=== PATIENT | male | born 1950 | race Caucasian/White ===

== ENCOUNTER → 2016-06-13 | Outpatient (CLI) | payer OTHER ==
[2013-11-11 14:32] VITALS: BP 178/105
[~2016-06-13] MED LIST: IOHEXOL 240 MG/ML 50ML VIAL. PO ONE; IOHEXOL 300 MG/ML 100ML VIAL. IV ONE; LISI-334 PO; OXYC-250 PO
--- NOTE | 2016-06-13 13:56 | KCIC ---
Examination: CT of the abdomen pelvis with oral and IV contrast. HISTORY History of left-sided abdominal pain. COMPARISON 11/20/2013. TECHNIQUE Axial CT images at the pelvis were performed without with oral and IV contrast. Coronal sagittal reformats were performed. Exposure: One or more of the following dose reduction technique were utilized for this examination: 1. Automated exposure control. 2.Adjustment of MA and /or KV according to patient size. 3. Use of iterative reconstruction technique. Findings: Mild bibasilar lung atelectasis. No evidence of free air identified in the abdomen The visualized liver demonstrates mild diffuse decrease attenuation. The visualized spleen, adrenals grossly appears unremarkable. The gallbladder is mildly distended. The stomach is mildly distended. The visualized pancreas grossly appears unremarkable. The bilateral kidneys enhance symmetrically. There is a punctate 3 millimeter intrarenal collecting system calculus identified in the left kidney. There is a 9.5 millimeter calculus identified at the right ureterovesical junction with minimal distal right hydroureter. The stomach is mildly distended. The small bowel is nondilated. Feces and gas noted in the colon. The urinary bladder is mildly distended. Moderate prostatomegaly. There is moderate focal fat stranding identified in the subcutaneous region of the left anterior abdominal wall just anterior to the left rectus sheath measuring 10.4 x 4.6 centimeters. Mild aortic atherosclerosis. Moderate degenerative changes lumbar spine. IMPRESSION - Moderate sized focal fat stranding identified in the subcutaneous region of the left mid abdomen abutting the left rectus sheath, most likely cellulitis. Other possibilities include scarring changes or desmoid or fibrosis. - 9.5 millimeter calculus identified in the distal right ureter at the ureterovesical junction causing minimal distal right hydroureter. - Punctate intrarenal collecting system calculi identified in the left kidney - Hepatic steatosis. Electronically signed by: Ramon Jean (Jun 13, 2016 13:55:26)
== END | disposition home or self-care (01) ==
LOC: KCIC CT 11:47
PROVIDERS: ATTEND Family Medicine
DX: R10.2 Pelvic and perineal pain (principal); K76.0 Fatty (change of) liver, not elsewhere classified
CPT/HCPCS: 74177; 82565; Q9966; Q9967

== ENCOUNTER → 2018-09-23 | Outpatient (CLI) | payer OTHER ==
[2013-11-11 14:32] VITALS: BP 178/105
[~2018-09-23] MED LIST changes: -IOHEXOL 240 MG/ML 50ML VIAL. PO ONE; -IOHEXOL 300 MG/ML 100ML VIAL. IV ONE; -OXYC-250 PO; +OXYC1TAB22 PO
--- NOTE | 2018-09-23 09:17 | RAD ---
Three-view right shoulder study Clinical indications: Right shoulder pain. Previous fracture 2 years ago. COMPARISON: June 07, 2016. FINDINGS: Deformity of the proximal right humerus is seen due to an old healed fracture. No acute-appearing fracture is evident. There is degenerative spurring of the glenohumeral joint with joint space narrowing consistent with osteoarthritis. No AC joint separation is seen. No lytic process is evident. Mild primary degenerative osteoarthritis and spurring of the AC joint is seen. IMPRESSION: Degenerative osteoarthritis of the glenohumeral joint and AC joint is seen. There has been progression of osteoarthritis of the glenohumeral joint since June 07, 2016. Old healed proximal right humeral fracture. Electronically signed by: David Brooke MD (09/23/2018 9:14 AM) [facility]
== END | disposition home or self-care (01) ==
LOC: RAD 05:57
PROVIDERS: ATTEND Family Medicine
DX: M19.011 Primary osteoarthritis, right shoulder (principal); M77.8 Other enthesopathies, not elsewhere classified
CPT/HCPCS: 73030

== ENCOUNTER → 2018-11-21 | Outpatient (CLI) | payer OTHER ==
[2013-11-11 14:32] VITALS: BP 178/105
[~2018-11-21] MED LIST changes: +ALPR1TAB6 PO; +BUPIVACAINE MPF 0.5% 30 ML VIAL. ONE; +DICL112S2 TP; +DOCU-150 PO; +FLUO10CA7 PO; +methylPREDNISolone ACETATE 40 MG/ML VIAL. ONE
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
== END ==
LOC: PNCL 09:03
PROVIDERS: ATTEND Anesthesiology
DX: R10.32 Left lower quadrant pain (principal); I10 Essential (primary) hypertension; Z87.442 Personal history of urinary calculi; Z98.890 Other specified postprocedural states
CPT/HCPCS: 64450; J1030; J3490

== ENCOUNTER → 2018-12-12 | Outpatient (CLI) | payer OTHER ==
[2013-11-11 14:32] VITALS: BP 178/105
[~2018-12-12] MED LIST changes: -BUPIVACAINE MPF 0.5% 30 ML VIAL. ONE; -methylPREDNISolone ACETATE 40 MG/ML VIAL. ONE
--- NOTE | 2018-12-12 22:21 | PAIN ---
DATE OF SERVICE: 12/12/2018 DIAGNOSIS: Abdominal wall pain, left lower quadrant. HISTORY OF PRESENT ILLNESS: The patient is a 68-year-old male who returns for followup status post abdominal wall, transabdominal plexus field block on 11/21/2018. The patient reports he has 0 pain. After about 2-3 days, the pain was completely gone and has not returned, in the left lower quadrant. He has been increasing his activity, he has been sleeping well at night, he has been doing more or less whatever he feels like doing without any restriction from the pain. The patient reports his pain is a 2 on a scale of 10 at all times, average, worst and least at 2 but reports he is doing quite well. The patient reports no new motor or sensory deficits. Sleeping well at night once again, increased his distance walking, especially, with greater ease and comfort and working with greater ease and comfort. PHYSICAL EXAMINATION: VITAL SIGNS: The patient's blood pressure 157/95, pulse 61, respirations 16, temperature 98.1 degrees Fahrenheit, weight is 206 pounds. GENERAL: The patient is awake, alert, oriented, appropriate, very pleasant demeanor. The patient is accompanied by his . HEENT: Shows normocephalic, atraumatic. Extraocular movements are intact and symmetrical. Oral cavity: Mucous membranes moist and pink. Dentition is intact. NECK: Shows anterior throat supple without palpable lymphadenopathy noted. Swallow reflex symmetrical. CHEST: Shows normal on inspection. Breath sounds are clear to auscultation bilaterally. HEART: Shows S1, S2 clear. No murmurs auscultated. ABDOMEN: Soft, nontender, nondistended. No palpable organomegaly is noted. No rebound or guarding demonstrated. BACK: Shows spine grossly in the midline. Normal appearing thoracic kyphosis and lumbar lordotic curvature. ABDOMEN: Shows nontender, nondistended. No palpable organomegaly is noted. Left lower quadrant shows some increased swelling in appearance, but without tenderness on palpation significantly through the entire left lower quadrant, even with deeper palpation. No masses are noted. No masses are palpated. No organomegaly is demonstrated. No tenderness throughout the area of the previous pain and the previous injections. PLAN: Options were discussed with the patient and the patient's spouse. We will hold on any further injections today as he is doing quite well. The patient was encouraged to increase activity as tolerated and we will follow up at this time on as needed basis. ALEX MUNOZ MD DR: DORIS/anju JOB#: [id number] / [id number]
== END | disposition home or self-care (01) ==
LOC: PNCL 09:32
PROVIDERS: ATTEND Anesthesiology
DX: R10.12 Left upper quadrant pain (principal); M40.294 Other kyphosis, thoracic region; M40.46 Postural lordosis, lumbar region
CPT/HCPCS: G0463

== ENCOUNTER 2019-05-01 12:30 | Emergency (ER) | payer OTHER ==
[~2019-05-01] VITALS: Ht 182.9 cm; Wt 43.1 kg
[~2019-05-01 12:30] MED LIST changes: +FLUO10CA14 PO; -FLUO10CA7 PO
[2019-05-01 12:57] LABS: BILIRUBIN,URINE NEGATIVE (NEG); CLARITY,URINE CLEAR; COLOR,URINE YELLOW; NITRITE,URINE NEGATIVE (NEG); PH,URINE 6.5; PROTEIN,URINE NEGATIVE (NEG-TRACE); UROBILINOGEN,URINE 0.2 mg/dL (0.2 mg/dL)
[2019-05-01 12:58] LABS: BASO % 1 % (0-3); EOS % 0 % (0-3); HEMATOCRIT 49.6 % (39.0-53.0); HEMOGLOBIN 17.1 g/dL (13.0-17.5); LYMPH # 0.9 x10^3/uL (1.0-4.8); LYMPH % 14 % (24-48); MEAN CORPUSCULAR HEMOGLOBIN 32 pg (25-35); MEAN CORPUSCULAR HGB CONC 34 g/dL (31-37); MEAN CORPUSCULAR VOLUME 93 fL (79-100); MONO # 0.4 x10^3/uL (0.0-1.1); MONO % 7 % (0-9); NEUT % 78 % (31-73); PLATELET COUNT 277 x10^3/uL (140-400); RED BLOOD COUNT 5.32 x10^6/uL (4.30-5.70); RED CELL DISTRIBUTION WIDTH 12.9 % (11.5-14.5); WHITE BLOOD COUNT 6.3 x10^3/uL (4.0-11.0)
[2019-05-01 13:04] LABS: BACTERIA,URINE 0 /HPF (0-FEW); RBC,URINE 0 /HPF (0-2); SQUAMOUS EPITHELIAL CELL,UR OCC /LPF; WBC,URINE 0 /HPF (0-4)
[2019-05-01 13:06] LABS: CALCIUM 9.5 mg/dL (8.5-10.1); CREATININE 1.3 mg/dL (0.7-1.3); GFR 54.9; POTASSIUM 4.2 mmol/L (3.5-5.1)
[2019-05-01 13:11] LABS: ALBUMIN/GLOBULIN RATIO 1.2 (1.0-1.7); TOTAL BILIRUBIN 0.8 mg/dL (0.2-1.0); TOTAL PROTEIN 7.4 g/dL (6.4-8.2)
[2019-05-01] MEDS: ONDANSETRON PF 4 MG/2 ML VIAL. IVP ONE (13:16)
[2019-05-01] MEDS: MORPHINE SULFATE 4 MG/ML VIAL. IV ONE (13:17)
[2019-05-01] MEDS: IOHEXOL 300 MG/ML 100ML VIAL. IV ONE (13:30)
[2019-05-01] MEDS: CONTRAST GIVEN. MC PRN (13:31)
--- NOTE | 2019-05-01 14:06 | RAD ---
Examination: CT ABD PELV W/ IV CONTRST ONLY History: Pelvic pain Comparison/Correlation: 06/13/2016 CT abdomen and pelvis with contrast Findings: Axial images of the abdomen and pelvis were obtained following IV contrast. Sagittal and coronal reformatted images were provided. Coronary arterial calcifications are notable. Minimal right posterior basilar costophrenic sulcus atelectasis is present. Linear scarring or atelectasis is also present. Liver, spleen, pancreas, adrenal glands, and appendix are unremarkable. Minimal calculus involvement of the gallbladder near the gallbladder neck is evident. No biliary dilatation. Punctate right renal lower pole calyceal calculus is present. Several left renal calyceal calculi are present measuring up to 0.4 cm in diameter. Left renal lower pole cyst is present. Very small to characterize lesions involving the kidneys which probably represent cysts or other benign process began seen. Diverticulosis is present without findings of acute inflammation. No extraluminal gas. No ascites or pelvic free fluid. At the distal right ureter, there is a 0.4 cm diameter calculus. Within the urinary bladder at this site, there is a 1.1 cm diameter calculus. Prostate gland is enlarged measuring 4.3 cm transverse. Left hip joint degenerative remodeling is present. Subchondral degenerative cystic involvement is present. Osteochondral lesion may also be present involving the left femoral head. Slight irregularity of the left femoral head contour noted. Impression: Cholelithiasis without findings of acute cholecystitis. Bilateral nonobstructive renal calculi greater number on the left. Right ureteral calculus again seen. Calculus within the urinary bladder is again seen. No acute inflammatory process or obstruction. Diverticulosis. Prostatomegaly. Significant left hip joint degenerative narrowing and remodeling in the interval. Osteochondral lesion of the left femoral head is suggested measuring 1.5 cm diameter in the interval. PQRS Compliance Statement: One or more of the following individualized dose reduction techniques were utilized for this examination: 1. Automated exposure control 2. Adjustment of the mA and/or kV according to patient size 3. Use of iterative reconstruction technique Electronically signed by: Joel Carpenter MD (05/01/2019 2:03 PM) [facility]
[2019-05-01] MEDS ORDERED: TRAM50TA PO (15:22)
[2019-05-01] MEDS ORDERED: PROM25TA10 PO (15:22)
[2019-05-01] MEDS ORDERED: HYDR25CA75 PO (15:22)
[2019-05-01 15:52] VITALS: BP 157/97
[2019-05-01] MEDS: cloNIDine TTS-1 1 PATCH PATCH.TDWK TD ONE (15:53)
--- NOTE | 2019-05-01 16:39 | PHYS DOC ---
Past Medical History Past Medical History: Anxiety, Depression, Hypertension, Other Additional Past Medical Histor: vertigo, angioedema, Hematoma Past Surgical History: No Surgical History Additional Past Surgical Histo: stent for kidney stones Alcohol Use: None Drug Use: Other Social History Narrative: Unknown oblong, white tablet, imprint 353 Adult General Chief Complaint Chief Complaint: ABDOMINAL PAIN [facility] HPI Patient is a 69 year old male with history of chronic hip, back and knee pain who presents with abdominal pain 2 days. Patient's states pain began after running out of her opiates. Patient is sitting/dependent on nonprescribed opiate medications the past year. States he is ran out of opiate medication at times and develops abdominal pain and nausea. Denies chest pain chest tightness, vomiting and diarrhea. No fever. No other acute symptoms or complaints.[] Review of Systems Review of Systems ROS as per HPI All other systems were reviewed and found to be within normal limits, except as documented in this note. Current Medications Current Medications Current Medications Medications (Trade) Dose Ordered Sig/Chris Start Time Stop Time Status Last Admin Dose Admin Clonidine HCl (Catapres Tts-1) 1 patch 1X ONCE 05/01/19 15:30 05/01/19 15:31 DC 05/01/19 15:53 1 PATCH Info (CONTRAST GIVEN -- Rx MONITORING) 1 each PRN DAILY PRN 05/01/19 13:30 05/01/19 16:09 DC 05/01/19 13:31 1 EACH Iohexol (Omnipaque 300 Mg/ml) 60 ml 1X ONCE 05/01/19 13:30 05/01/19 13:31 DC 05/01/19 13:30 60 ML Morphine Sulfate (Morphine Sulfate) 4 mg 1X ONCE 05/01/19 13:00 05/01/19 13:01 DC 05/01/19 13:17 4 MG Ondansetron HCl (Zofran) 4 mg 1X ONCE 05/01/19 13:00 05/01/19 13:01 DC 05/01/19 13:16 4 MG Allergies Allergies Allergies Coded Allergies Type Severity Reaction Last Updated Verified No Known Drug Allergies 11/11/13 No Physical Exam Physical Exam Constitutional: Well developed, I, clammy, moderate discomfort secondary to pain. [] HENT: Normocephalic, atraumatic, bilateral external ears normal, oropharynx moist, nose normal. [] Eyes: PERRLA, EOMI, conjunctiva normal, no discharge. [] Neck: Normal range of motion. [] Cardiovascular: Tachycardic[] Lungs & Thorax: Bilateral breath sounds clear to auscultation [] Abdomen: Bowel sounds normal, soft, fused lower abdominal pain, minimal tenderness, no palpable hernias.. [] Skin: Warm, dry. [] Back: No tenderness. [] Extremities: No tenderness, no cyanosis, no clubbing, ROM intact, no edema. [] Neurologic: Alert and oriented X 3, normal motor function, normal sensory function, no focal deficits noted. [] Psychologic: Affect normal, judgement normal, mood normal. [] Current Patient Data Vital Signs Vital Signs Date Time Temp Pulse Resp B/P (MAP) Pulse Ox O2 Delivery O2 Flow Rate FiO2 05/01/19 15:52 86 157/97 (117) Room Air 05/01/19 14:21 94 05/01/19 13:17 18 05/01/19 12:38 98.0 98.0 Lab Values Laboratory Tests Test 05/01/19 12:40 White Blood Count 6.3 x10^3/uL (4.0-11.0) Red Blood Count 5.32 x10^6/uL (4.30-5.70) Hemoglobin 17.1 g/dL (13.0-17.5) Hematocrit 49.6 % (39.0-53.0) Mean Corpuscular Volume 93 fL (79-100) Mean Corpuscular Hemoglobin 32 pg (25-35) Mean Corpuscular Hemoglobin Concent 34 g/dL (31-37) Red Cell Distribution Width 12.9 % (11.5-14.5) Platelet Count 277 x10^3/uL (140-400) Neutrophils (%) (Auto) 78 % (31-73) H Lymphocytes (%) (Auto) 14 % (24-48) L Monocytes (%) (Auto) 7 % (0-9) Eosinophils (%) (Auto) 0 % (0-3) Basophils (%) (Auto) 1 % (0-3) Neutrophils # (Auto) 5.0 x10^3/uL (1.8-7.7) Lymphocytes # (Auto) 0.9 x10^3/uL (1.0-4.8) L Monocytes # (Auto) 0.4 x10^3/uL (0.0-1.1) Eosinophils # (Auto) 0.0 x10^3/uL (0.0-0.7) Basophils # (Auto) 0.0 x10^3/uL (0.0-0.2) Urine Collection Type Void Urine Color Yellow Urine Clarity Clear Urine pH 6.5 Urine Specific [place] <=1.005 Urine Protein Negative mg/dL (NEG-TRACE) Urine Glucose (UA) Negative mg/dL (NEG) Urine Ketones (Stick) Negative mg/dL (NEG) Urine Blood Negative (NEG) Urine Nitrite Negative (NEG) Urine Bilirubin Negative (NEG) Urine Urobilinogen Dipstick 0.2 mg/dL (0.2 mg/dL) Urine Leukocyte Esterase Negative (NEG) Urine RBC 0 /HPF (0-2) Urine WBC 0 /HPF (0-4) Urine Squamous Epithelial Cells Occ /LPF Urine Bacteria 0 /HPF (0-FEW) Sodium Level 139 mmol/L (136-145) Potassium Level 4.2 mmol/L (3.5-5.1) Chloride Level 103 mmol/L (98-107) Carbon Dioxide Level 22 mmol/L (21-32) Anion Gap 14 (6-14) Blood Urea Nitrogen 19 mg/dL (8-26) Creatinine 1.3 mg/dL (0.7-1.3) Estimated GFR (Cockcroft-Gault) 54.9 BUN/Creatinine Ratio 15 (6-20) Glucose Level 98 mg/dL (70-99) Calcium Level 9.5 mg/dL (8.5-10.1) Total Bilirubin 0.8 mg/dL (0.2-1.0) Aspartate Amino Transferase (AST) 20 U/L (15-37) Alanine Aminotransferase (ALT) 26 U/L (16-63) Alkaline Phosphatase 103 U/L (46-116) Total Protein 7.4 g/dL (6.4-8.2) Albumin 4.0 g/dL (3.4-5.0) Albumin/Globulin Ratio 1.2 (1.0-1.7) Lipase 196 U/L (73-393) Laboratory Tests 05/01/19 12:40 Laboratory Tests 05/01/19 12:40 EKG EKG [] Radiology/Procedures Radiology/Procedures [CT abdomen pelvis: No acute disease per radiology report] Course & Med Decision Making Course & Med Decision Making Pertinent Labs and Imaging studies reviewed. (See chart for details) [Recurrent abdominal pain in the setting of acute narcotic withdrawal. Blood p ressure, heart rate in abdominal pain resolved with treatment. Will treat with withdrawal symptoms with instructions to follow-up with PCP for further management of. Return precautions reviewed. Patient verbalizes understanding] Dragon Disclaimer Dragon Disclaimer This electronic medical record was generated, in whole or in part, using a voice recognition dictation system. Departure Departure Impression: Primary Impression: Hypertension Additional Impressions: Narcotic withdrawal Abdominal pain Disposition: HOME, SELF-CARE Condition: GOOD Patient Instructions: Abdominal Pain (Nonspecific), Narcotic Overdose Additional Instructions: Please take newly prescribed medication as directed. Follow-up with your PCP next 1-3 days for further evaluation and management of withdrawal symptoms. Remove Catapres patch in 7 days. Return to the ED if new or worsening symptoms. Scripts Tramadol Hcl (TRAMADOL HCL) 50 Mg Tablet 50 MG PO Q6H PRN for PAIN for 3 Days, #15 TAB 0 Refills Prov: CONNER NAVARRETE DO 05/01/19 Promethazine Hcl (PROMETHAZINE HCL) 25 Mg Tablet 1 TAB PO PRN Q6HRS PRN for NAUSEA, #10 TAB Prov: CONNER NAVARRETE DO 05/01/19 Hydroxyzine Pamoate (HYDROXYZINE PAMOATE) 25 Mg Capsule 1 CAP PO TID PRN for ANXIETY / AGITATION, #15 CAP Prov: CONNER NAVARRETE DO 05/01/19 Problem Qualifiers CONNER NAVARRETE DO May 01, 2019 16:39
== END 2019-05-01 16:00 | disposition home or self-care (01) ==
LOC: ER 12:30
DX: I10 Essential (primary) hypertension (principal); R10.30 Lower abdominal pain, unspecified; F11.23 Opioid dependence with withdrawal; R11.0 Nausea; F41.9 Anxiety disorder, unspecified; F32.9 Major depressive disorder, single episode, unspecified; Z98.890 Other specified postprocedural states
CPT/HCPCS: 36415; 74177; 80053; 81001; 83690; 85025; 96374; 96375; 99285; J2270; J2405; Q9967

== ENCOUNTER → 2019-05-26 | Outpatient (CLI) | payer OTHER ==
[2019-05-01 15:52] VITALS: BP 157/97
[~2019-05-26] MED LIST changes: +BUPIVACAINE MPF 0.5% 10 ML VIAL for KCIC. IJ ONE; +HYDR25CA75 PO; +IOHEXOL 300 MG/ML 50 ML VIAL. INT ART ONE; +LIDOCAINE 1% Multi-Dose 20 ML VIAL. ID ONE; +PROM25TA10 PO; +TRAM50TA PO; +methylPREDNISolone ACETATE 40 MG/ML VIAL. INT ART ONE
--- NOTE | 2019-05-26 18:06 | KCIC ---
PROCEDURE Therapeutic left hip injection using fluoroscopic guidance. HISTORY Hip pain. TECHNIQUE The procedure was explained to the patient as were potential risks, including infection, bleeding or allergic reaction. All questions were answered. Informed written and verbal consent was obtained. The hip was prepped and draped in the usual sterile manner. Following administration of local anesthetic, a 22-gauge spinal needle was advanced into the hip joint without difficulty, with care taken to avoid the vascular structures. Stylet was removed and following negative aspiration, a mixture of 4 cc Omnipaque-300, 2 cc (80 mg) Depo-Medrol, 4 cc bupivacaine and 4 cc 1% lidocaine were injected without difficulty. Fluoroscopy demonstrates uniform and satisfactory distribution of the injection through the hip. The needle was removed. There was good hemostasis at the injection site. The patient left in stable condition without immediate complication. Patient was advised as to potential postprocedural complications and advised to contact their physician or the emergency room in such event. A single spot image was obtained. FLUOROSCOPY TIME: 24 seconds Electronically signed by: Jasson Hendrickson MD (05/26/2019 6:03 PM) [id number]
== END | disposition home or self-care (01) ==
LOC: KCIC 15:00
PROVIDERS: ATTEND Orthopaedic Surgery Sports Medicine
DX: M16.12 Unilateral primary osteoarthritis, left hip (principal)
CPT/HCPCS: 20610; 77002; J1030; Q9967

== ENCOUNTER → 2019-08-26 | Outpatient (CLI) | payer OTHER ==
[~2019-08-26] MED LIST changes: -BUPIVACAINE MPF 0.5% 10 ML VIAL for KCIC. IJ ONE; -IOHEXOL 300 MG/ML 50 ML VIAL. INT ART ONE; -LIDOCAINE 1% Multi-Dose 20 ML VIAL. ID ONE; -methylPREDNISolone ACETATE 40 MG/ML VIAL. INT ART ONE
--- NOTE | 2019-08-26 13:13 | RAD ---
EXAM: SHOULDER 2+V RIGHT 08/26/2019 12:00 AM CLINICAL INDICATION:Right shoulder pain, fell this morning. COMPARISON:Right shoulder 05/23/2019 TECHNIQUE:3 views of the right shoulder FINDINGS:There is an old healed right humeral neck fracture with chronic deformity of the proximal humerus. No definite recurrent fracture. There is heterotopic ossification along the inferomedial aspect of the humeral head. Moderate glenohumeral degenerative joint disease with subchondral cysts and sclerosis. Mild acromioclavicular degenerative joint disease. The subacromial space is maintained. The visualized right hemithorax is intact. IMPRESSION:Unchanged old healed right proximal humerus fracture. Moderate glenohumeral degenerative joint disease. Electronically signed by: Bhavani Harper MD (08/26/2019 1:10 PM) [id number]
== END | disposition home or self-care (01) ==
LOC: RAD 11:56
PROVIDERS: ATTEND Family Medicine
DX: M19.011 Primary osteoarthritis, right shoulder (principal); M21.821 Other specified acquired deformities of right upper arm; M25.811 Other specified joint disorders, right shoulder; Z87.81 Personal history of (healed) traumatic fracture
CPT/HCPCS: 73030

== ENCOUNTER → 2019-09-08 | Outpatient (CLI) | payer OTHER ==
[2019-09-08 16:21] LABS: CALCIUM 8.5 mg/dL (8.5-10.1); CREATININE 1.8 mg/dL (0.7-1.3); GFR 37.7; POTASSIUM 4.7 mmol/L (3.5-5.1)
--- NOTE | 2019-09-09 06:57 | CARD ---
MR#: [id number] Date of Study: 09/08/2019 Ordering Physician: BIANKA MAYNARD, Referring Physician: BIANKA MAYNARD, Tech: Elena Lund [facility] APPROVED REPORT EXAM: Two-dimensional and M-mode echocardiogram with Doppler and color Doppler. Other Information Quality : Good INDICATION Hypertension/HCVD 2D DIMENSIONS RVDd2.7 (2.9-3.5cm)Left Atrium(2D)4.8 (1.6-4.0cm) IVSd1.3 (0.7-1.1cm)Aortic Root(2D)2.8 (2.0-3.7cm) LVDd5.5 (3.9-5.9cm)LVOT Diameter2.3 (1.8-2.4cm) PWd1.2 (0.7-1.1cm)LVDs4.4 (2.5-4.0cm) FS (%) 20.2 %SV60.9 ml LVEF(%)50.0 (>50%) Aortic Valve AoV Peak Jeovany.149.9cm/sAoV VTI28.4cm AO Peak GR.9.0mmHgLVOT Peak Jeovany.134.9cm/s AO Mean GR.5mmHgAVA (VMAX)3.67cm2 ALMITA (VTI)3.14aj1XD P 1/2 Bbro301qp Mitral Valve MV E Ftbfmnvj42.2cm/sMV DECEL ADRD483og MV A Stcpuaii19.5cm/sE/A Ratio1.1 Tricuspid Valve TR P. Fqojagmb070dr/sRAP IYAVZKOQ5bcLs TR Peak Gr.50wqMeKDFD91rmRe Pulmonary Vein S1 Fsszbtvf49.7cm/sD2 Prkypwzp25.5cm/s LEFT VENTRICLE The left ventricle is normal size. There is mild concentric left ventricular hypertrophy. The Ejectio n Fraction is 55-60%. Basal inferior wall appears hypokinetic. Transmitral Doppler flow pattern is Gr dima II-pseudonormal filling dynamics. RIGHT VENTRICLE The right ventricle is normal size. The right ventricular systolic function is normal. ATRIA The left atrium is mildly dilated. The right atrium size is normal. The interatrial septum is intact with no evidence for an atrial septal defect or patent foramen ovale as noted on 2-D or Doppler imagi ng. AORTIC VALVE The aortic valve is mildly thickened but opens well. Doppler and Color Flow revealed mild aortic regu rgitation. There is no significant aortic valvular stenosis. MITRAL VALVE The mitral valve is calcified but opens well. There is no evidence of mitral valve prolapse. There is no mitral valve stenosis. Doppler and Color-flow revealed mild mitral regurgitation. TRICUSPID VALVE The tricuspid valve is normal in structure and function. Doppler and Color Flow revealed trace tricus pid regurgitation. There is mild pulmonary hypertension. The PA pressure was estimated at 34 mmHg. Th ere is no tricuspid valve stenosis. PULMONIC VALVE The pulmonic valve is not well visualized. Doppler and Color Flow revealed trace pulmonic valvular re gurgitation. There is no pulmonic valvular stenosis. GREAT VESSELS The aortic root is normal in size. The ascending aorta is moderately dilated at 3.9 cm. The IVC is no rmal in size and collapses >50% with inspiration. PERICARDIAL EFFUSION There is no evidence of significant pericardial effusion. Critical Notification Critical Value: No <Conclusion> Basal inferior wall appears hypokinetic. The Ejection Fraction is 55-60%. Mild aortic regurgitation. Mild mitral regurgitation. Trace tricuspid regurgitation. The PA pressure was estimated at 34 mmHg. There is no evidence of significant pericardial effusion. Signed by : Steven Kim, Electronically Approved : 09/09/2019 06:57:06
== END | disposition home or self-care (01) ==
LOC: ECHO 15:20
PROVIDERS: ATTEND Internal Medicine Cardiovascular Disease
DX: I08.0 Rheumatic disorders of both mitral and aortic valves (principal); I27.20 Pulmonary hypertension, unspecified; I10 Essential (primary) hypertension
CPT/HCPCS: 36415; 80048; 93306

== ENCOUNTER 2019-09-16 07:30 | Emergency (ER) | payer OTHER ==
[~2019-09-16] VITALS: Ht 177.8 cm; Wt 95.0 kg
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
[2019-09-16] MEDS ORDERED: ONDANSETRON PF 4 MG/2 ML VIAL. IVP ONE (08:15)
[2019-09-16 08:22] LABS: BASO % 1 % (0-3); EOS # 0.1 x10^3/uL (0.0-0.7); EOS % 2 % (0-3); HEMATOCRIT 40.8 % (39.0-53.0); HEMOGLOBIN 14.2 g/dL (13.0-17.5); LYMPH # 0.4 x10^3/uL (1.0-4.8); LYMPH % 14 % (24-48); MEAN CORPUSCULAR HEMOGLOBIN 33 pg (25-35); MEAN CORPUSCULAR HGB CONC 35 g/dL (31-37); MEAN CORPUSCULAR VOLUME 95 fL (79-100); MONO # 0.3 x10^3/uL (0.0-1.1); MONO % 8 % (0-9); NEUT # 2.3 x10^3/uL (1.8-7.7); NEUT % 75 % (31-73); PLATELET COUNT 233 x10^3/uL (140-400); RED BLOOD COUNT 4.28 x10^6/uL (4.30-5.70); RED CELL DISTRIBUTION WIDTH 13.4 % (11.5-14.5); WHITE BLOOD COUNT 3.1 x10^3/uL (4.0-11.0)
[2019-09-16 08:30] LABS: CALCIUM 8.8 mg/dL (8.5-10.1); CREATININE 1.5 mg/dL (0.7-1.3); GFR 46.5
[2019-09-16 08:33] LABS: PROTHROMBIN TIME PATIENT 13.4 SEC (11.7-14.0)
[2019-09-16 08:36] LABS: ALBUMIN 3.6 g/dL (3.4-5.0); ALBUMIN/GLOBULIN RATIO 1.1 (1.0-1.7); MAGNESIUM 1.8 mg/dL (1.8-2.4); TOTAL BILIRUBIN 1.1 mg/dL (0.2-1.0); TOTAL PROTEIN 6.9 g/dL (6.4-8.2)
--- NOTE | 2019-09-16 09:20 | RAD ---
Examination: CT ABDOMEN PELVIS WO CONTRAST History: Reason: abdominal pain, nausea, vomiting, constipation / Spl. Instructions: / History: Comparison/Correlation: 06/13/2016 CT abdomen and pelvis with contrast Findings: Axial images of the abdomen and pelvis were obtained without contrast. Sagittal and coronal reformatted images were provided. Marked calcification involving the partially visualized coronary arteries is seen. Posterior basilar linear scarring or atelectasis noted. This is primarily noted on the right and has remained stable. Small calculi are present within the gallbladder. Gallbladder is mildly distended but there are no definite inflammatory findings. No biliary dilatation. Liver, spleen, pancreas, and adrenal glands are normal. Punctate right renal lower pole calyceal calculus is present. Similar size interpolar renal calculus is also present within the calyx. Moderate right renal atrophy is present. There are several or more left renal calyceal calculi. The largest of these at the interpolar level measures 0.33 cm diameter. Within the distal right ureter near the ureteral pelvic junction, there is a 0.2 cm diameter calculus. More distally, there is an additional calculus. This abuts a calculus within the right ureterovesical junction measuring 0.9 cm x 0.44 cm in the axial plane by 0.7 cm longitudinal. There are no radiopaque left atelectasis and calculi. Appendix is normal. Moderate quantity of stool in the colon noted. No bowel obstruction or extraluminal gas. No inflammatory findings associated bowel. No large abdominal or pelvic lymph nodes. Prostate gland is mildly enlarged measuring up to 4.7 cm transverse. Moderate L5-S1 disc space narrowing is present. Severe left hip joint degenerative remodeling and subchondral cystic changes as well as sclerosis is present along with spurring. Impression: Right ureterovesical junction calculus is present. This probably represents a calculus within the ureterocele. There is some upon correlation with the recent prior exam of 05/01/2019. Additional punctate calculus involving the distal right ureter also seen. No significant distention of the right collecting system. No left collecting system distention. Bilateral renal calyceal nonobstructing calculi are again noted. Cholelithiasis. No acute inflammatory findings identified. Moderate quantity of stool in the colon. No bowel obstruction. PQRS Compliance Statement: One or more of the following individualized dose reduction techniques were utilized for this examination: 1. Automated exposure control 2. Adjustment of the mA and/or kV according to patient size 3. Use of iterative reconstruction technique Electronically signed by: Joel Carpenter MD (09/16/2019 9:17 AM) [id number]
[2019-09-16 09:22] LABS: BILIRUBIN,URINE NEGATIVE (NEG); CLARITY,URINE CLEAR; COLOR,URINE YELLOW; NITRITE,URINE NEGATIVE (NEG); PH,URINE 6.5 (<5.0-8.0); PROTEIN,URINE NEGATIVE (NEG-TRACE)
[2019-09-16] MEDS ORDERED: KETOROLAC 30 MG/ML VIAL. IVP ONE (09:45)
[2019-09-16] MEDS ORDERED: MAGNESIUM CITRATE 296 ML SOLUTION. PO ONE (09:45)
[2019-09-16 09:52] LABS: RBC,URINE OCC /HPF (0-2)
[2019-09-16 09:53] LABS: BACTERIA,URINE 0 /HPF (0-FEW); SQUAMOUS EPITHELIAL CELL,UR OCC /LPF
[2019-09-16] MEDS ORDERED: BISA-42 PO (10:29)
[2019-09-16] MEDS ORDERED: CEPH-264 PO (10:29)
[2019-09-16 10:30] VITALS: BP 148/73
== END 2019-09-16 10:55 | disposition home or self-care (01) ==
LOC: ER 07:30
DX: N20.2 Calculus of kidney with calculus of ureter (principal); K80.20 Calculus of gallbladder without cholecystitis without obstruction; N39.0 Urinary tract infection, site not specified; K59.00 Constipation, unspecified; I10 Essential (primary) hypertension; Z96.0 Presence of urogenital implants
CPT/HCPCS: 36415; 74176; 80053; 81001; 83690; 83735; 85025; 85610; 85730; 87086; 96374; 96375; 99285; J1885; J2405

== ENCOUNTER → 2019-10-03 | Outpatient (CLI) | payer OTHER ==
[2019-09-16 10:30] VITALS: BP 148/73
[~2019-10-03] MED LIST changes: +BISA-42 PO; +CEPH-264 PO
--- NOTE | 2019-10-03 15:27 | KCIC ---
EXAM: MRI RIGHT SHOULDER WITHOUT CONTRAST INDICATION: Postmenopausal gas arthritis of right shoulder. COMPARISON: Right shoulder radiograph 09/23/2018 TECHNIQUE: Multiplanar, multisequence imaging of the right shoulder Without contrast. FINDINGS: ROTATOR CUFF: There is thinning of the rotator cuff with suspected deep partial-thickness articular sided tear of the supraspinatus tendon anteriorly at the footprint. The tear measures 7 mm in coronal diameter by 5 mm in AP diameter. The remainder of the supraspinatus tendon and infraspinatus tendon are thinned but intact. Subscapularis tendon is intact. Teres minor tendon is intact. No rotator cuff muscle atrophy or edema. LABRUM: There is diffuse degenerative labral tearing.. BICEPS TENDON: The biceps tendon is intact and located. ACROMIOCLAVICULAR JOINT: Mild degenerative joint disease. Type I acromion without downsloping. GLENOHUMERAL JOINT: There is full-thickness cartilage loss throughout most of the humeral head, greatest posterior medially. Full-thickness cartilage loss throughout the posterior half of the glenoid. There is eccentric wear of the posterior glenoid with retroversion. Large humeral head and glenoid osteophytes. Subchondral cysts and edema are seen in both facet joint. Chronic deformity of the proximal humerus from old humeral neck fracture is redemonstrated. There is persistent low T1 signal and mild marrow edema along the site of old healed fracture. OTHER: Small joint effusion. No subacromial-subdeltoid bursitis. IMPRESSION: 1. Severe glenohumeral osteoarthrosis with widespread areas of full-thickness cartilage loss. 2. Thinning of the rotator cuff with small deep partial-thickness articular sided tear of the far anterior supraspinatus tendon. 3. Old healed humeral neck fracture. Small joint effusion. Electronically signed by: Bhavani Harper MD (10/03/2019 3:24 PM) [id number]
== END | disposition home or self-care (01) ==
LOC: KCIC MRI 13:32
PROVIDERS: ATTEND Orthopaedic Surgery Sports Medicine
DX: S46.011A Strain of muscle(s) and tendon(s) of the rotator cuff of right shoulder, initial encounter (principal); M19.111 Post-traumatic osteoarthritis, right shoulder; M19.011 Primary osteoarthritis, right shoulder; M25.411 Effusion, right shoulder; X58.XXXA Exposure to other specified factors, initial encounter; Y93.89 Activity, other specified; Y92.89 Other specified places as the place of occurrence of the external cause; Y99.8 Other external cause status
CPT/HCPCS: 73221

== ENCOUNTER → 2019-10-20 | Outpatient (CLI) | payer OTHER ==
[~2019-10-20] MED LIST changes: +FLUO40CA2 PO; +HYDR-2763 PO
[2019-10-20 13:59] LABS: BASO % 1 % (0-3); EOS # 0.1 x10^3/uL (0.0-0.7); EOS % 1 % (0-3); HEMATOCRIT 39.6 % (39.0-53.0); HEMOGLOBIN 13.6 g/dL (13.0-17.5); LYMPH % 19 % (24-48); MEAN CORPUSCULAR HEMOGLOBIN 33 pg (25-35); MEAN CORPUSCULAR HGB CONC 34 g/dL (31-37); MEAN CORPUSCULAR VOLUME 97 fL (79-100); MONO # 0.4 x10^3/uL (0.0-1.1); MONO % 7 % (0-9); NEUT # 3.7 x10^3/uL (1.8-7.7); NEUT % 72 % (31-73); PLATELET COUNT 262 x10^3/uL (140-400); RED CELL DISTRIBUTION WIDTH 13.5 % (11.5-14.5); WHITE BLOOD COUNT 5.1 x10^3/uL (4.0-11.0)
[2019-10-20 14:09] LABS: ALBUMIN 3.5 g/dL (3.4-5.0); C-REACTIVE PROTEIN 0.9 mg/L (0-3.3); CALCIUM 8.6 mg/dL (8.5-10.1); CREATININE 1.7 mg/dL (0.7-1.3); GFR 40.3; POTASSIUM 3.8 mmol/L (3.5-5.1)
[2019-10-20 14:21] LABS: PROTHROMBIN TIME PATIENT 12.3 SEC (11.7-14.0)
--- NOTE | 2019-10-20 14:39 | EKG ---
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
--- NOTE | 2019-10-20 17:38 | RAD ---
PA and lateral chest. HISTORY: Preop shoulder surgery PA and lateral views were taken of the chest. There is an old healed fracture of the humerus with arthritis at the right shoulder. There is pleural thickening on the right. Lungs are free of confluent infiltrates. Heart is normal in size. There is mild scoliosis. IMPRESSION: 1. No acute infiltrates. Electronically signed by: Gage Deshpande MD (10/20/2019 5:35 PM) [id number]
[2019-10-23 01:09] LABS: HEMOGLOBIN A1C 5.2 % (4.8-5.6)
== END ==
LOC: SURGPAT 12:46
PROVIDERS: ATTEND Orthopaedic Surgery Sports Medicine
DX: Z01.818 Encounter for other preprocedural examination (principal); M19.011 Primary osteoarthritis, right shoulder
CPT/HCPCS: 36415; 71046; 80048; 80307; 82040; 82306; 83036; 85025; 85610; 85730; 86140; 87641; 93005

== ENCOUNTER → 2019-10-30 | Outpatient (CLI) | payer OTHER | END | disposition home or self-care (01) | LOC: LAB 13:21 | PROVIDERS: ATTEND Orthopaedic Surgery Sports Medicine | DX: Z11.59 Encounter for screening for other viral diseases (principal) | CPT/HCPCS: U0003-CS ==

== ENCOUNTER 2019-11-03 05:46 | Observation (INO) | payer OTHER ==
[2019-11-03] VITALS (7 sets, daily range): BP systolic 111–141; BP diastolic 68–88
[~2019-11-03] VITALS: Ht 179.1 cm; Wt 106.5 kg
[2019-11-03] MEDS ORDERED: MORPHINE SULFATE 5 MG, KETOROLAC 30MG VIAL 30 MG, ROPIVacaine 0.5% PF 60 ML, EPINEPHrin... INT ART ONE ×5 (06:00)
[2019-11-03] MEDS ORDERED: TRANEXAMIC ACID 1,000 MG in IV NORMAL SALINE 50ML 50 ML INJ ONE ×2 (06:00→08:00)
[2019-11-03] MEDS ORDERED: MELOXICAM 7.5 MG TABLET PO ONE (06:45)
[2019-11-03] MEDS ORDERED: ACETAMINOPHEN 500 MG TABLET PO ONE (06:45)
[2019-11-03] MEDS ORDERED: PROPOFOL 10 MG/ML (20ML) VIAL. IV ONE (06:56)
[2019-11-03] MEDS ORDERED: LIDOCAINE 2% PF 5 ML VIAL. ONE (06:56)
[2019-11-03] MEDS ORDERED: ROCURONIUM 50 MG/5 ML VIAL. ONE ×2 (06:56→08:32)
[2019-11-03] MEDS ORDERED: fentaNYL PF VIAL 100 MCG/2 ML VIAL ONE ×2 (06:56→09:36)
[2019-11-03] MEDS ORDERED: MIDAZOLAM HCL/PF 2 MG/2 ML VIAL. ONE (06:58)
[2019-11-03] MEDS ORDERED: DEXAMETHASONE SOD PHOS 4 MG/ML VIAL ONE ×2 (06:58→08:15)
[2019-11-03] MEDS ORDERED: LIDOCAINE 1% PF 2 ML VIAL. ID PRN (07:00)
[2019-11-03] MEDS ORDERED: MORPHINE SULFATE 2 MG/ML VIAL. IV PRN (07:00)
[2019-11-03] MEDS ORDERED: fentaNYL PF VIAL 100 MCG/2 ML VIAL IV PRN ×2 (07:00)
[2019-11-03] MEDS ORDERED: IV RINGERS,LACTATED 1000ML 1,000 ML IV SCH (07:00)
[2019-11-03] MEDS ORDERED: PROCHLORPERAZINE 10 MG/2 ML VIAL. IV PRN (07:00)
[2019-11-03] MEDS ORDERED: ONDANSETRON PF 4 MG/2 ML VIAL. IV PRN (07:00)
[2019-11-03] MEDS ORDERED: HYDROmorphone 2 MG/ML VIAL IV PRN (07:00)
[2019-11-03] MEDS ORDERED: ROPIVacaine 0.5% PF 20 ML VIAL. ONE (07:07)
[2019-11-03] MEDS ORDERED: IV NORMAL SALINE 1000ML BAG 1,000 ML IV SCH (07:37)
[2019-11-03] MEDS ORDERED: IV DEXTROSE 5 %-0.45 % NACL 1,000 ML IV SCH (07:37)
[2019-11-03] MEDS ORDERED: DEXTROSE 50% 25 GM / 50ML DISP.SYRIN. IV PRN (07:45)
[2019-11-03] MEDS ORDERED: METOCLOPRAMIDE HCL 10 MG/2 ML VIAL. IV PRN (07:45)
[2019-11-03] MEDS ORDERED: DOCUSATE SODIUM 100 MG CAPSULE. PO PRN (07:45)
[2019-11-03] MEDS ORDERED: oxyCODONE/APAP 5/325 1 TAB TABLET PO PRN (07:45)
[2019-11-03] MEDS ORDERED: traMADol 50 MG TABLET PO PRN ×2 (07:45)
[2019-11-03] MEDS ORDERED: BISACODYL 5 MG TABLET.DR. PO PRN (07:45)
[2019-11-03] MEDS ORDERED: ZOLPIDEM 5 MG TABLET. PO PRN (07:45)
[2019-11-03] MEDS ORDERED: NALOXONE 0.4 MG/ML VIAL. IV PRN (07:45)
[2019-11-03] MEDS ORDERED: ACETAMINOPHEN 325 MG TABLET. PO PRN (07:45)
[2019-11-03] MEDS ORDERED: CALCIUM CARBONATE 500 MG TAB.CHEW PO PRN (07:45)
[2019-11-03] MEDS ORDERED: 0.9 % SODIUM CHLORIDE 10 ML DISP.SYRIN. IV PRN (07:45)
[2019-11-03] MEDS ORDERED: PROCHLORPERAZINE 5 MG TABLET. PO PRN (07:45)
[2019-11-03] MEDS ORDERED: PHENYLEPHRINE in 0.9% NACL PF 1 MG/10 ML SYRINGE. IV ONE (08:15)
[2019-11-03] MEDS ORDERED: ONDANSETRON PF 4 MG/2 ML VIAL. ONE (08:15)
[2019-11-03] MEDS ORDERED: ePHEDrine PF IN SALINE 50 MG/10 ML SYRINGE. IV ONE (08:32)
[2019-11-03] MEDS ORDERED: NEOSTIGMINE METHYLSULFATE 5 MG/5 ML SYRINGE. ONE (08:46)
[2019-11-03] MEDS ORDERED: GLYCOPYRROLATE 1 MG/5 ML VIAL. ONE (08:46)
[2019-11-03] MEDS: SENNOSIDES/DOCUSATE 8.6/50MG TABLET. PO SCH (09:00)
[2019-11-03] MEDS: MULTIVITAMIN with MINERAL TABLET. PO SCH (09:00)
[2019-11-03] MEDS ORDERED: LISINOPRIL 20 MG TABLET PO SCH ×2 (09:00→21:00)
[2019-11-03] MEDS: FERROUS SULFATE 325 MG TABLET. PO SCH ×2 (09:00→18:00)
[2019-11-03] MEDS ORDERED: NON FORMULARY ITEM (Fluoxetine Hcl 40 MG) PO SCH (09:00)
[2019-11-03] MEDS ORDERED: FLUoxetine HCL 10 MG CAPSULE PO SCH ×2 (09:00→21:00)
[2019-11-03] MEDS ORDERED: HYDROmorphone 2 MG/ML VIAL ONE (10:32)
--- NOTE | 2019-11-03 10:50 | PDOC4 ---
Operative Note Operative Note Date of procedure: 11/03/2019 Surgeon: Robbie Land Low Pressure Kettle Operator: Vivek Bansal, certified residential medication aide Preoperative diagnosis: Degenerative joint disease, posttraumatic, right wendy ohumeral joint Postoperative diagnosis: Same Procedure performed: Right total shoulder arthroplasty I do think a modifier would be appropriate given the increased complexity of this case evidenced by the operative time and need for intraoperative fluoros copy given his proximal humerus malunion Anesthesia: General plus regional nerve block Blood loss: 150 mL Complications: None Components inserted:Aequalis Perform pegged glenoid, flex shoulder system STP humeral head, 45 x 15 low E centricity, ascend flex standard PTC humeral stem, size 1B Reason for procedure: Patient is a very pleasant 61-year-old gentleman with slowly progressive loss of shoulder function, increasing stiffness and pain secondary to degenerative joint disease. He had a proximal humerus fracture remotely that had healed. Please see my outpatient consult notes for further details. He and I had discussed proceeding with a total shoulder arthroplasty a couple of times after failure of conservative therapies including therapy and injections. He wished to proceed. Description of procedure: Patient was greeted in the preoperative holding area where the correct extremity was verified and marked. He was seen by the anesthesiology team and they placed a regional nerve block prior to bring him back to the operating room. His antibiotics were started as he was brought back. Once in the operating room, he was transferred gently supine to the operating room table and had successful induction of a general anesthetic. He was then sat up in a beachchair position with his C-spine in neutral position and a large pad under his legs. We then proceeded to prep and drape right upper extremity and shoulder girdle in her usual sterile fashion including Ioban at the periphery. We conducted our standard preoperative timeout. After this, I palpated and marked surface anatomy and khadar a line for my standard deltopectoral incision. I incised skin with a scalpel and dissected Subcutaneous tissue with electrocautery and Metzenbaums, cauterizing bleeders as they were encountered. Identified the cephalic vein and developed the best interval, mobilizing the vein laterally. I bluntly dissected under the deltoid, releasing the subdeltoid space, there was a large amount of fibrotic tissue throughout his entire proximal humerus region. I took down some anterior deltoid insertion as I was anticipating the need for improved exposure. After this, I palpated first bicipital groove and incised this with my tenotomy's. I then tenodesed biceps at upper border of pectoralis major and open the bicipital groove into the rotator interval and glenohumeral joint. I then remove the biceps tendon, excising it. After this, I proceeded to take down the subscapularis and placed traction stitches in it for later repair. His shoulder was still quite tight. I then added my Kolbel retractor, and appreciated his [place] anatomy after removing osteophytes with a rondure. I then made my head cut. I inspected his rotator cuff, it was intact superiorly and posteriorly. After this, I used a Hohmann retractor behind his glenoid. Performed a circumferential release around his glenoid with a scalpel, using a [place] to feel along the edge to make an sure help and tried accomplish a complete release. I then placed my Bankart retractor. I then excised his labrum. I then sized for my glenoid baseplate, place my guidepin and then drilled for my central peg hole and peripheral 2 holes through the drill guide. I had placed my pegs. I then removed all this and thoroughly irrigated. I then placed cement in the peripheral 3 holes, bone graft in the central peg and impacted my glenoid into position, holding pressure until the cement had polymerized. After this, I redirected my attention to the proximal humerus, I had difficulty gaining entry to his canal I tried a very small all and a 5 mm drill bit I was able to get the starting reamer in position, but given his proximal humerus fracture I did bring in C arm to help guide position of my broaches and subsequently my trial stem. I did broach, he had really snug fit with the smallest broach. I then trialed head sizes and selected the above size, adjusting the rotation to fill his proximal humerus head region. I then took C arm image again in 2 planes and was happy with the position. After this, I removed all trial components and thoroughly irrigated the operative field again. I then placed Ethibond through drill tunnels and secured this around my stem I impacted into position after I constructed my head and stem assembly on the back table. I then used these Ethibond sutures for my subscapularis repair, reinforcing it with simple interrupted #2 Ethibond at the interval as well. After this, I thoroughly irrigated everything out again injected local mixture. I then closed the deltoid interval with running #1 Vicryl. Inverted interrupted 2-0 Vicryl was used for subcutaneous tissue and in an inverted interrupted fashion and running 3-0 Monocryl in a buried subcuticular fashion for skin. Prior to wound closure, all counts correct x2. No complications. At the inclusion, a sterile dressing was applied after her shoulder was cleansed and dried and is placed into a simple sling. He was then awakened from anesthesia and laid supine and transferred on spine to the recovery room cart. He was taken to the PACU in a stable and extubated condition. Postoperative plan is to admit him for observation and pain control as well as IV antibiotics. He received PT and OT. I will follow along. ROBBIE LAND II, MD Nov 03, 2019 10:49
[2019-11-03] MEDS ORDERED: DICLOFENAC SODIUM 1% TOPICAL GEL 100GM TUBE. TP PRN (11:17)
--- NOTE | 2019-11-03 11:37 | RAD ---
AP and Y view of the right shoulder no comparison. INDICATION: Postop. FINDINGS: Patient status post right humeral arthroplasty. The glenoid fossa is shallow with sclerotic margins and multiple subchondral cysts suggesting chronic degenerative change. Prosthesis appears appropriately aligned. There is scarring of the right costophrenic angle. Reviewed hardware failure or loosening. Mild subcutaneous air. Electronically signed by: Geronimo Esquivel MD (11/03/2019 11:34 AM) [id number]
--- NOTE | 2019-11-03 12:07 | NUR ---
Arrived to unit by bed. Awakens easily. Right shoulder dressing is d/i with arm in sling. Unable to wiggle fingers, numb and tingling. Right radial pulse +,warm and pink. IVF's intact and infusing. LURDES's and SCD's on bilaterally. O2 at 2l per n/c and sating at 95%. Oriented to room and controls. Side rails up x's 2 with call light in reach. Cont. monitor.
--- NOTE | 2019-11-03 13:15 | NUR ---
Ambulated to bathroom with steady gait. Unable to void. Encourage to increase po fluids. Noted right shoulder dressing bleeding. Reinforced it with 4x4 and ABD dressing. Applied new ice pack to site. Cont. monitor.
[2019-11-03] MEDS: oxyCODONE/APAP 7.5/325 1 TAB TABLET PO PRN ×3 (15:31→22:36)
--- NOTE | 2019-11-03 15:46 | RAD ---
FLUOROSCOPY < 1 HR History: Reason: RIGHT SHOULDER REPLACEMENT / Spl. Instructions: / History: Comparison: None. Technique/findings: Fluoroscopy provided intraoperatively during right shoulder arthroplasty. See procedure note for further details. Fluoroscopy time: 2.1 seconds Number of fluoroscopic images: 2 Impression: 1. Fluoroscopy provided intraoperatively during right shoulder arthroplasty. Electronically signed by: Melvin Malcolm DO (11/03/2019 3:43 PM) [facility]
--- NOTE | 2019-11-03 16:45 | NUR ---
Unable to void attempted x's 3. Bladder scan and it showed 306ml. Pt stated it feels more than that. St cath and received 500ml dark blaire urine. Cont. monitor.
[2019-11-03] MEDS: MORPHINE SULFATE 2 MG/ML VIAL. IV PRN (17:22)
--- NOTE | 2019-11-03 18:45 | NUR ---
Ambulated to bathroom and void some but it burned. Encourage pt to increase po intake. Cont monitor.
[2019-11-03] MEDS: CELECOXIB 100 MG CAPSULE. PO SCH (21:03)
[2019-11-03] MEDS: ALPRAZolam 1 MG TABLET PO PRN (21:05)
[2019-11-04] MEDS: oxyCODONE/APAP 7.5/325 1 TAB TABLET PO PRN ×3 (01:36→07:31)
[2019-11-04 03:00] VITALS: BP 141/74
[2019-11-04 03:14] LABS: HEMATOCRIT 31.8 % (39.0-53.0); HEMOGLOBIN 11.2 g/dL (13.0-17.5)
[2019-11-04] MEDS ORDERED: MAGNESIUM HYDROXIDE 2,400 MG/30 ML ORAL.SUSP. PO PRN (06:00)
[2019-11-04 07:00] VITALS: BP 144/86
[2019-11-04] MEDS: CELECOXIB 100 MG CAPSULE. PO SCH (07:31)
[2019-11-04] MEDS: MORPHINE SULFATE 2 MG/ML VIAL. IV PRN (07:31)
[2019-11-04] MEDS: MULTIVITAMIN with MINERAL TABLET. PO SCH (07:31)
[2019-11-04] MEDS: SENNOSIDES/DOCUSATE 8.6/50MG TABLET. PO SCH (07:32)
[2019-11-04] MEDS: FERROUS SULFATE 325 MG TABLET. PO SCH (07:32)
[2019-11-04] MEDS: ALPRAZolam 1 MG TABLET PO PRN ×2 (08:54→13:26)
--- NOTE | 2019-11-04 09:02 | PDOC ---
ORTHO PROGRESS NOTES Subjective His pain has been quite bothersome. He is hoping for stronger pain medicines. He required a straight cath yesterday, he has been able to void on his own. Vitals Vital Signs Date Time Temp Pulse Resp B/P (MAP) Pulse Ox O2 Delivery O2 Flow Rate FiO2 11/04/19 07:31 16 11/04/19 07:31 Room Air 11/04/19 07:00 98.3 71 144/86 (105) 93 98.3 11/03/19 14:40 2.0 Labs Laboratory Tests Test 11/04/19 02:40 Hemoglobin 11.2 g/dL (13.0-17.5) Hematocrit 31.8 % (39.0-53.0) Mean Corpuscular Hemoglobin Concent 35 g/dL (31-37) Laboratory Tests Test 11/04/19 02:40 Hemoglobin 11.2 g/dL (13.0-17.5) Hematocrit 31.8 % (39.0-53.0) Mean Corpuscular Hemoglobin Concent 35 g/dL (31-37) Notes He is awake and alert in bed. Sling is in place. Dressing is intact, small amount of bloody drainage. Normal motor and sensation are present in his hands Assessment and Plan I would anticipate we could discharge him later today. We will adjust his pain regimen. We will try to give him a new sling for comfort. I discussed his care with his nurse. DAVID LAND II, MD Nov 04, 2019 09:02
--- NOTE | 2019-11-04 09:04 | PDOC3 ---
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0-53.0) Mean Corpuscular Hemoglobin Concent 35 g/dL (31-37) Brief Hospital Course Mr. Malloy is a 69 old male who had seen and been followed in my outpatient clinic for complaints of his shoulder pain and dysfunction. He had tried conservative therapies. We discussed operative intervention and he wished to proceed. He tolerated surgery recovered well from anesthesia in the PACU and was taken up to the medical surgical floor. We adjusted his pain regimen and prior to discharge, his pain is controlled on oral pain medicine. He required a straight catheterization x1 on postop day 0, he was voiding normally prior to discharge. Normal bowel and bladder function were present. He was tolerating regular diet. He received instruction from PT and OT. Discharge Information Condition at Discharge: Stable Follow Up: Weeks Disposition/Orders: D/C to Home Scheduled Fluoxetine Hcl (Fluoxetine Hcl) 10 Mg Capsule, Unknown Dose PO DAILY for anxiety, (Reported) Entered as Reported by: VAUGHN KNIGHT on 11/21/18 1146 Last Action: Continued on 11/03/19744 by ERIKA LAND MD Fluoxetine Hcl (Fluoxetine Hcl) 40 Mg Capsule, 40 MG PO DAILY for DEPRESSION, (Reported) Entered as Reported by: CANDICE CHURCH on 10/20/19 1305 Last Action: Converted on 11/03/19744 by ERIKA LAND MD Hydrocodone/Acetaminophen (Hydrocodone-Acetamin 7.5-325) 1 Each Tablet, 1 EACH PO TID for ANALGESIA, (Reported) Entered as Reported by: CANDICE CHURCH on 10/20/19 1320 Last Action: HELD on 11/03/19744 by ERIKA LAND MD Lisinopril (Lisinopril) 20 Mg Tablet, 20 MG PO DAILY for FOR HYPERTENSION, #30 Ref 0 (Reported) Entered as Reported by: CANDICE CHURCH on 10/20/19 1305 Last Action: Continued on 11/03/19744 by ERIKA LAND MD Scheduled PRN Alprazolam (Alprazolam) 1 Mg Tablet, Unknown Dose PO PRN Q6HRS PRN for ANXIETY / AGITATION, Ref 0 (Reported) Entered as Reported by: VAUGHN KNIGHT on 11/21/18 114 Last Action: Continued on 11/03/19744 by ERIKA LAND MD Bisacodyl (Dulcolax) 5 Mg Tablet.dr, 10 MG PO PRN DAILY PRN for CONSTIPATION for 30 Days, #30 Ref 0 Prescribed by: THIERNO SCHAEFER D.O. on 09/16/19 1029 Last Action: Continued on 11/03/19744 by ERIKA LAND MD Diclofenac Sodium (Pennsaid) 112 Gm Ama..design center consultant, 112 GM TP PRN PRN for PAIN, (Reported) Entered as Reported by: VAUGHN KNIGHT on 11/21/18 114 Last Action: Converted on 11/03/19744 by ERIKA LAND MD Docusate Sodium (Stool Softener) 100 Mg Capsule, 100 MG PO PRN PRN for constipation, (Reported) Entered as Reported by: VAUGHN KNIGHT on 11/21/18 114 Last Action: Continued on 11/03/19744 by ERIKA LAND MD Patient Instructions Patient Instructions He can be discharged home. Nonweightbearing, arm to remain in sling. Worrisome signs and symptoms that should prompt a phone call to my office were discussed. He will follow-up in 2 weeks, sooner should a problem arise Justicifation of Admission Dx: Justifications for Admission: Justification of Admission Dx: No DAVID LAND II, MD Nov 04, 2019 09:04
--- NOTE | 2019-11-04 09:10 | DISCH ---
DISCHARGE INSTRUCTIONS Condition on Discharge Condition on Discharge: Stable Activity After Discharge Activity Instructions for Disc: Other, see below Other activity instructions: Arm to remain in sling Bathing Instructions: Shower-keep dressing dry Weight Bearing Status after Di: Non weight bearing Diet after Discharge Diet after Discharge: Regular Wound Incision Care Wound/Incision Care: Ice to area for comfort, Keep wound/cast CDI, Change dressing Other wound/incision instructi: Change dressing as needed Contacting the DR. after DC Call your doctor for: Concerns you may have Follow-Up Follow up with: Dereje in 2 wks Treatment/Equipment after DC Adaptive Equipment Issued: None DAVID LAND II, MD Nov 04, 2019 09:10
[2019-11-04] MEDS ORDERED: oxyCODONE/APAP 10/325 1 TAB TABLET PO PRN (09:15)
[2019-11-04 11:00] VITALS: BP 161/97
--- NOTE | 2019-11-04 12:40 | NUR ---
SW following. Discussed with RN, pt from home, room air, regular diet. PT/OT recommending home or outpatient therapy. Pt having a lot of pain today. RN advised no SW needs, pt is discharging home later today.
[2019-11-04] MEDS ORDERED: IV RINGERS,LACTATED 1000ML 1,000 ML IV SCH (13:26)
[2019-11-04] MEDS ORDERED: HYDROmorphone 2 MG/ML VIAL IV PRN (13:30)
[2019-11-04] MEDS ORDERED: MORPHINE SULFATE 2 MG/ML VIAL. IV PRN (13:30)
[2019-11-04] MEDS ORDERED: fentaNYL PF VIAL 100 MCG/2 ML VIAL IV PRN ×2 (13:30)
[2019-11-04] MEDS ORDERED: PROCHLORPERAZINE 10 MG/2 ML VIAL. IV PRN (13:30)
[2019-11-04] MEDS ORDERED: ONDANSETRON PF 4 MG/2 ML VIAL. IV PRN (13:30)
--- NOTE | 2019-11-04 14:28 | NUR ---
reviewed discharge instructions with and patient. reviewed restrictions to activities of daily living and restrictions to right shoulder, don Arlen ansariing applied and states it feels better . script for pain medication given to . follow up appt made and given to Vivek. saline lock removed. dismissed to home with
[2019-11-04] MEDS ORDERED: BISACODYL 10 MG SUPP.RECT. PR PRN (16:00)
--- NOTE | 2019-11-05 17:07 | PATHOLOGY ---
[facility] Accession Number: [id number] . 01 Material submitted: . humerus - HUMERAL HEAD. Modifiers: head . 01 Clinical history: . Osteoarthritis . 02 Diagnosis: Humeral head, right total shoulder replacement: - Advanced degenerative arthritis. (JPM:allyson; 11/05/2019) QMS 11/05/2019 1409 Local . 02 Electronically signed: . John Chinchilla MD, Pathologist NPI- [id number] . 01 Gross description: . The specimen is received in formalin, labeled "Vivek Malloy, humeral head" and consists of a head measuring 5.0 x 4.5 x 1.2 cm. The articular surfaces display eburnation. A labor service representative section is submitted in A1 following decalcification. (SDY; 11/04/2019) SYU/SYU 11/04/2019 1008 Local . 02 Pathologist provided ICD-10: M19.011 . 02 CPT . 116177, 360462 Specimen Comment: A courtesy copy of this report has been sent to [phone] Specimen Comment: [id number] Specimen Comment: Report sent to / DR RUSH Performed at: 01 [facility] [address], [place] [id number] MD Dereck Wall MD Phone: [phone] Performed at: 02 [facility] [address], [place] [id number] MD John Chinchilla MD Phone: [phone]
== END 2019-11-04 14:42 | disposition home or self-care (01) ==
LOC: SURG 05:46 → 4 NORTH 11:10
PROVIDERS: ADMIT Orthopaedic Surgery Sports Medicine; ATTEND Orthopaedic Surgery Sports Medicine
DX: M19.011 Primary osteoarthritis, right shoulder (principal)
CPT/HCPCS: 23472; 36415; 73030; 76000; 85014; 85018; 86850; 86900; 86901; 88304; 88311; 96365; 96366; 96375; 96376; 97110; 97116; 97162; 97166; 97530; 97535; A7015; C1713; G0378; G0379; J0171; J0690; J1100; J1170; J1885; J2250; J2270; J2370; J2405; J2704; J2710; J2795; J3010; J3490; J7030; J7042; J7120; A4565; C1769

== ENCOUNTER → 2020-03-15 | Outpatient (CLI) | payer OTHER ==
[~2020-03-15] MED LIST changes: -FLUO10CA14 PO; +FLUO10CA15 PO
[2020-03-15 09:52] LABS: BASO % 1 % (0-3); EOS # 0.1 x10^3/uL (0.0-0.7); EOS % 3 % (0-3); HEMOGLOBIN 14.6 g/dL (13.0-17.5); LYMPH # 0.7 x10^3/uL (1.0-4.8); LYMPH % 17 % (24-48); MEAN CORPUSCULAR HEMOGLOBIN 31 pg (25-35); MEAN CORPUSCULAR HGB CONC 33 g/dL (31-37); MEAN CORPUSCULAR VOLUME 94 fL (79-100); MONO # 0.4 x10^3/uL (0.0-1.1); MONO % 9 % (0-9); NEUT % 70 % (31-73); PLATELET COUNT 250 x10^3/uL (140-400); RED CELL DISTRIBUTION WIDTH 13.9 % (11.5-14.5); WHITE BLOOD COUNT 4.2 x10^3/uL (4.0-11.0)
[2020-03-15 10:03] LABS: ALBUMIN 3.7 g/dL (3.4-5.0); ANION GAP 10 (6-14); BLOOD UREA NITROGEN 22 mg/dL (8-26); CALCIUM 9.9 mg/dL (8.5-10.1); CARBON DIOXIDE 25 mmol/L (21-32); CHLORIDE 103 mmol/L (98-107); CREATININE 1.3 mg/dL (0.7-1.3); GFR 54.9; GLUCOSE 89 mg/dL (70-99); SODIUM 138 mmol/L (136-145)
[2020-03-15 10:05] LABS: C-REACTIVE PROTEIN < 0.6 mg/L (0-3.3); PROTHROMBIN TIME PATIENT 12.3 SEC (11.7-14.0)
[2020-03-16 01:09] LABS: HEMOGLOBIN A1C 5.4 % (4.8-5.6)
== END ==
LOC: SURGPAT 12:41
PROVIDERS: ATTEND Orthopaedic Surgery
DX: Z01.818 Encounter for other preprocedural examination (principal); M16.12 Unilateral primary osteoarthritis, left hip; Z96.642 Presence of left artificial hip joint
CPT/HCPCS: 36415; 80048; 82040; 82306; 83036; 85025; 85610; 85730; 86140; 87641

== ENCOUNTER → 2020-03-31 | Outpatient (CLI) | payer OTHER ==
[~2020-03-31] MED LIST changes: +CALC500T30 PO; +CHOL500050 PO; +GABA600T7 PO; +WARF2.5T71 PO
== END ==
LOC: LAB 11:03
PROVIDERS: ATTEND Orthopaedic Surgery
DX: Z01.812 Encounter for preprocedural laboratory examination (principal); Z20.828 Contact with and (suspected) exposure to other viral communicable diseases; M48.02 Spinal stenosis, cervical region; M54.12 Radiculopathy, cervical region
CPT/HCPCS: U0003

== ENCOUNTER 2020-04-06 11:14 | Observation (INO) | payer OTHER ==
[~2020-04-06] VITALS: Ht 179.1 cm; Wt 101.2 kg
[2020-04-06] VITALS (7 sets, daily range): BP systolic 93–132; BP diastolic 61–80
[~2020-04-06 11:14] MED LIST changes: +ACETAMINOPHEN 500 MG TABLET PO PRN; -DOCU-150 PO; +DOCU-158 PO; -GABA600T7 PO; +GABAPENTIN 300 MG CAPSULE. PO PRN; +HYDROmorphone 2 MG/ML VIAL IV PRN; +LIDOCAINE 1% PF 2 ML VIAL. ID PRN; +LIDOCAINE 2% PF 5 ML VIAL. ONE; -LISI-334 PO; +LISI20TA18 PO; +MELOXICAM 7.5 MG TABLET PO PRN; +MORPHINE SULFATE 5 MG, KETOROLAC 30MG VIAL 30 MG, ROPIVacaine 0.5% PF 60 ML, EPINEPHrin... INT ART ONE; +ONDANSETRON PF 4 MG/2 ML VIAL. IV PRN; +PROCHLORPERAZINE 10 MG/2 ML VIAL. IV PRN; +PROPOFOL 10 MG/ML (20ML) VIAL. IV ONE; +TRANEXAMIC ACID 1,000 MG in IV NS 50ML -- 1ST BAG INJ ONE; +TRANEXAMIC ACID 1,000 MG in IV NS 50ML -- 2ND BAG INJ ONE; -WARF2.5T71 PO; +fentaNYL PF VIAL 100 MCG/2 ML VIAL IV PRN
[2020-04-06] MEDS: IV RINGERS,LACTATED 1000ML 1,000 ML IV SCH ×3 (11:40→17:43)
--- NOTE | 2020-04-06 11:43 | HP ---
ADMIT DATE: 04/06/2020 CHIEF COMPLAINT: Left hip pain and degenerative joint disease. HISTORY OF PRESENT ILLNESS: The patient has left hip pain that is ongoing and worsening in severity, severely affecting his activities of daily living, unresponsive to nonoperative treatment. He had a right total shoulder arthroplasty in the past that continues to come along well and he is scheduled for definitive treatment of his left hip pathology today. PAST MEDICAL HISTORY: Significant for arthritis, kidney stones, gallstones, hypertension and anxiety. PAST SURGICAL HISTORY: Significant for the shoulder replacement and stents for kidney stones. FAMILY HISTORY: Mother is , had a history of diabetes. Father and had heart disease, has healthy siblings and children. SOCIAL HISTORY: He is , accompanied by his today. Denies smoking, alcohol or drug use. MEDICATIONS: List is reviewed. ALLERGIES: He has no known drug allergies, but does indicate sensitivity to MORPHINE. REVIEW OF SYSTEMS: Denies any recent febrile illness, chest pain, shortness of breath or other constitutional symptoms. PHYSICAL EXAMINATION: VITAL SIGNS: Per his admission sheet. HEENT: Atraumatic, normocephalic. HEART: Regular rate and rhythm. LUNGS: Clear to auscultation bilaterally. ABDOMEN: Benign. EXTREMITIES: Left hip exam reveals pain at his already limited extremes of range of motion compared to the right. Normal motion and stability, bilateral knees and ankles. IMAGING: X-rays show significant deformity of the left femoral head with joint line narrowing. IMPRESSION: 1. Osteoarthritis, left hip. 2. History of right total shoulder. TREATMENT PLAN: I had previously gone over with him risks, benefits, postoperative course of hip replacement on the left, including possibility of infection, leg length inequality, nerve or blood vessel damage, premature wear or loosening, medical or other anesthetic complications among others. He wishes to proceed with surgical evaluation and treatment and will undergo joint center observation to follow. HARJIT KOENIG MD DR: LISA/anju JOB#: [id number] / [id number]
[2020-04-06] MEDS ORDERED: fentaNYL PF VIAL 100 MCG/2 ML VIAL ONE ×2 (12:09→17:03)
[2020-04-06 12:11] LABS: PROTHROMBIN TIME PATIENT 12.6 SEC (11.7-14.0)
[2020-04-06] MEDS ORDERED: VANCOMYCIN 1 GM VIAL. ONE (13:20)
[2020-04-06] MEDS ORDERED: DEXAMETHASONE SOD PHOS 4 MG/ML VIAL ONE (14:07)
[2020-04-06] MEDS ORDERED: diphenhydrAMINE 50 MG/ML VIAL ONE (14:07)
[2020-04-06] MEDS ORDERED: ONDANSETRON PF 4 MG/2 ML VIAL. ONE (14:07)
[2020-04-06] MEDS ORDERED: PHENYLEPHRINE in 0.9% NACL PF 1 MG/10 ML SYRINGE. IV ONE (14:26)
[2020-04-06] MEDS ORDERED: ePHEDrine PF IN SALINE 50 MG/10 ML SYRINGE. IV ONE (14:26)
[2020-04-06] MEDS ORDERED: MORPHINE SULFATE 10 MG/ML VIAL. ONE (15:37)
[2020-04-06] MEDS ORDERED: GLYCOPYRROLATE 1 MG/5 ML VIAL. ONE (15:49)
[2020-04-06] MEDS ORDERED: NEOSTIGMINE METHYLSULFATE 5 MG/5 ML SYRINGE. ONE (15:49)
[2020-04-06] MEDS ORDERED: ZOLPIDEM 5 MG TABLET. PO PRN (17:00)
[2020-04-06] MEDS ORDERED: MORPHINE SULFATE 2 MG/ML VIAL. IVP PRN (17:00)
[2020-04-06] MEDS ORDERED: CALCIUM CARBONATE 500 MG TAB.CHEW PO PRN (17:00)
[2020-04-06] MEDS ORDERED: fentaNYL PF VIAL 100 MCG/2 ML VIAL IVP PRN (17:00)
[2020-04-06] MEDS ORDERED: DEXTROSE 50% 25 GM / 50ML DISP.SYRIN. IV PRN (17:00)
[2020-04-06] MEDS ORDERED: 0.9 % SODIUM CHLORIDE 10 ML DISP.SYRIN. IV PRN (17:00)
[2020-04-06] MEDS ORDERED: diphenhydrAMINE 50 MG/ML VIAL IVP PRN (17:00)
[2020-04-06] MEDS ORDERED: PROCHLORPERAZINE 5 MG TABLET. PO PRN (17:00)
[2020-04-06] MEDS: fentaNYL PF VIAL 100 MCG/2 ML VIAL IV PRN ×2 (17:10→17:21)
[2020-04-06] MEDS ORDERED: MORPHINE SULFATE 2 MG/ML VIAL. ONE (18:12)
[2020-04-06] MEDS: MORPHINE SULFATE 2 MG/ML VIAL. IV PRN ×2 (18:15→18:28)
[2020-04-06] MEDS ORDERED: BISACODYL 5 MG TABLET.DR. PO PRN (18:15)
[2020-04-06] MEDS ORDERED: IV NORMAL SALINE 1000ML BAG 1,000 ML IV SCH (19:00)
--- NOTE | 2020-04-06 19:10 | NUR ---
Per report from Gabrielle JACKSON Patient arrived at 1840 from PACU. Patient currently resting quietly eyes closed. Oxygen at 2 liters nasal cannula in place. Vital monitoring continues per post op vitals. Family left for evening. Will continue monitoring.
--- NOTE | 2020-04-06 19:22 | PDOC4 ---
Operative Note Operative Note Date of surgery: 04/06/2020 Preoperative diagnosis: Degenerative joint disease left hip Postoperative diagnosis: Same Operative procedure: Left total hip arthroplasty with anterior approach Surgeon Tim Director Of Community Education: Vivek pulliam Anesthesia: General Estimated blood loss: 150 cc Complications: None Drains: None Operative indications: Please see my orthopedic clinic note and dictated history and physical for detailed operative indications and note that we covered risks benefits postoperative course of the procedure. All his questions were answered and he wishes to proceed with surgical evaluation and treatment having given informed consent Operative text: Patient was identified procedure verified patient placed in the supine position on the [place] fracture table after adequate amounts of general anesthesia were administered. All bony prominences were well-padded and left hip was prepped and draped in the standard sterile fashion. After timeout was performed patient procedure identified and verified an incision was made just distal to the anterior superior iliac spine running along the tensor fascia doris for a distance of about 4 inches. Fascia was incised tensor fascia doris was taken laterally and circumflex vessels were located and coagulated and the anterior capsule was exposed with the rectus femoris gently retracted medially along with the underlying fascia that was dissected free. Capsule was split in a T-shaped incision and superior aspect of the capsule was excised and further superior release was carried out with the hip in external rotation. Hip was returned to 40 degrees external rotation and a napkin ring cut was made with an Avenir Cristiana broach for reference napkin ring was removed and femoral head was removed and sized. Reaming was carried out from a size 49 to a size 55 with a size 56 cluster hole cup placed in proper version and alignment under fluoroscopic guidance and achieved a very solid scratch fit and therefore no screw fixation was applied. A 36 mm vitamin E liner was impacted into place. Femur was brought into maximum external rotation extension and adduction and release was carried out at the 11 o'clock position to free up the femur and retractors were placed medially and above the greater trochanter for maximum femoral exposure box osteotome was used along with the rattail rasp and successive size broaching up to a size 6 which provided excellent stability and fit within the canal. Calcar reaming was carried out and trial fitting with a +0 36 mm head with a standard offset neck to reproduce leg length and offset appropriately. This was verified under fluoroscopic guidance. Since the leg length was about 2 mm long the broach was sunk further and additional calcar planing accomplished which equalized the leg lengths. Trial components were removed and a size 6 standard offset collared Avenir stem was impacted into place with a +0 ceramic 36 mm head. Excellent stability and range of motion were noted and leg length reproduced according to measurements from the contralateral side. Thorough irrigation carried out with dilute Betadine solution and then washed further with normal saline solution and pulse lavage. Intra-articular mixture was injected subperiosteally throughout the joint capsule and subcutaneous areas. Fascia was closed with #1 PDS strata fix suture in a running fashion subcutaneous closure with buried Vicryl skin closure with subcuticular Monocryl and a galen dressing was applied. Patient was returned to recovery room in stable condition having tolerated the procedure well. Vivek pulliam was present for the procedure and assisted in the patient positioning prepping draping retraction closure and dressings HARJIT KOENIG MD Apr 06, 2020 19:22
[2020-04-06] MEDS ORDERED: WARFARIN 7.5 MG TABLET. PO ONE (20:00)
[2020-04-06] MEDS: KETOROLAC 30MG VIAL 30 MG, BUPIVACAINE MPF 0.25% 20 ML, EPINEPHrine 0.5 MG in TOTAL VOL... INT ART SCH (20:30)
[2020-04-06] MEDS: ONDANSETRON ODT 4 MG TAB.RAPDIS. PO SCH (21:21)
[2020-04-06] MEDS: ALPRAZolam 1 MG TABLET PO PRN (21:33)
[2020-04-06] MEDS: oxyCODONE/APAP 10/325 1 TAB TABLET PO PRN (21:34)
[2020-04-06] MEDS: FERROUS SULFATE 325 MG TABLET. PO SCH (21:38)
[2020-04-06] MEDS: ONDANSETRON PF 4 MG/2 ML VIAL. IVP SCH (21:38)
[2020-04-07] MEDS: oxyCODONE IR 5 MG TABLET PO PRN ×2 (02:34→16:20)
[2020-04-07 02:37] VITALS: BP 107/69
[2020-04-07] MEDS ORDERED: MAGNESIUM HYDROXIDE 2,400 MG/30 ML ORAL.SUSP. PO PRN (06:00)
[2020-04-07] MEDS ORDERED: GABAPENTIN 100 MG CAPSULE. PO SCH (06:00)
[2020-04-07] MEDS: traMADol 50 MG TABLET PO SCH ×4 (06:12→19:13)
[2020-04-07] MEDS: ONDANSETRON ODT 4 MG TAB.RAPDIS. PO SCH ×3 (06:13→12:00)
[2020-04-07] MEDS: ONDANSETRON PF 4 MG/2 ML VIAL. IVP SCH ×3 (06:13→12:00)
[2020-04-07 06:15] VITALS: BP 109/74
[2020-04-07] MEDS: KETOROLAC 30MG VIAL 30 MG, BUPIVACAINE MPF 0.25% 20 ML, EPINEPHrine 0.5 MG in TOTAL VOL... INT ART SCH (07:23)
[2020-04-07] MEDS: MELOXICAM 7.5 MG TABLET PO SCH (07:51)
[2020-04-07] MEDS: CALCIUM CARBONATE 500 MG TABLET PO SCH (07:52)
[2020-04-07] MEDS: FERROUS SULFATE 325 MG TABLET. PO SCH ×2 (07:52→16:15)
[2020-04-07] MEDS: oxyCODONE/APAP 10/325 1 TAB TABLET PO PRN ×3 (07:52→21:10)
[2020-04-07] MEDS: SENNOSIDES/DOCUSATE 8.6/50MG TABLET. PO SCH (07:55)
[2020-04-07] MEDS: CHOLECALCIFEROL (VITAMIN D3) 5,000 UNIT CAPSULE PO SCH (07:55)
[2020-04-07] MEDS: MULTIVITAMIN with MINERAL TABLET. PO SCH (07:55)
[2020-04-07] MEDS: ACETAMINOPHEN 500 MG TABLET PO SCH ×3 (07:55→21:10)
[2020-04-07] MEDS: FLUoxetine HCL 20 MG CAPSULE PO SCH (07:56)
[2020-04-07] MEDS: LISINOPRIL 20 MG TABLET PO SCH (07:57)
[2020-04-07 08:48] LABS: HEMATOCRIT 37.2 % (39.0-53.0); HEMOGLOBIN 12.2 g/dL (13.0-17.5)
[2020-04-07 08:56] LABS: PROTHROMBIN TIME PATIENT 16.1 SEC (11.7-14.0)
[2020-04-07] MEDS ORDERED: FLU VACC QS 2020-21(6MOS+)/PF 0.5 ML SYRINGE. VAX IM ONE (09:00)
--- NOTE | 2020-04-07 09:24 | NUR ---
Patient with increased bleeding from surgical site. Dressing reinforced by shift supervisor rn around 0630 this morning. Upon morning OT assessment some bleeding was coming thru the bottom of the dressing so it was taped over and reinforced again. No new bleeding noted on reinforced dressing this morning other then what was leaking during transferring patient to the restroom. His blood pressures have also been running low. This mornings BP was 103/69 with a pulse of 78. Patient stated it usually doesn't run that low so it was held by this nurse. Patient asymptomatic at this time. Will continue to monitor.
--- NOTE | 2020-04-07 11:44 | NUR ---
Pharmacy Warfarin Dosing Note S: Pharmacy consulted to assist with anticoagulation therapy started 04/06/20 O: KACYYORDY is a 70 year old M with ANT LABS: Last INR: 1.3 Last HGB: 12.2 Last HCT: 37.2 Last PLT: - Last dose of 7.5 mg given on 04/06/20 at 2121 Ongoing Drug Interactions: PROZAC, MOBIC A:INR of 1.3 is below desired range. Target range for this patient is: 1.6 - 2.5 P: Warfarin dose: 5 mg Today at 1600 Bridge Therapy: None Next INR due 04/08/20 AM Pharmacy anticoagulation service will continue to follow. YULISSA JACKSON [facility], 04/07/20 1149
[2020-04-07] MEDS ORDERED: ONDANSETRON ODT 4 MG TAB.RAPDIS. PO PRN (12:00)
[2020-04-07] MEDS ORDERED: ONDANSETRON PF 4 MG/2 ML VIAL. IVP PRN (12:00)
--- NOTE | 2020-04-07 15:06 | NUR ---
Gave patient his flu shot in his Left arm without any complications noted. Lot# [id number], Exp# [id number]. Funding status V01 and Funding date 03/28/20
--- NOTE | 2020-04-07 15:15 | NUR ---
During the day today the patients hip dressing continued to leak blood. After his last PT session it had leaked thru his previously reinforced dressings. Everything was removed and the incision was cleansed with a cloroprep. [place] intact and incision does not appear with any dehiscence. Aquacel AG was placed per protocol but this nurse does not think it with withhold the amount of blood his hip incision is producing. Dr Dumont called and spoken with. He was to continue the patients coumadin with no held doses due to the bleeding and wants this nurse to place a Prevena Vac over the patients incision. Will have a Prevena vac sent to the floor and place on incision immediately. Patient notified. Will continue to monitor.
[2020-04-07] MEDS ORDERED: BISACODYL 10 MG SUPP.RECT. PR PRN (16:00)
[2020-04-07] MEDS ORDERED: WARFARIN 5 MG TABLET. PO ONE (16:00)
--- NOTE | 2020-04-07 16:38 | NUR ---
Prevena placed by this nurse and then verified by the wound care team. Prevena is working properly with no concerns noted at this time. Trouble shooting discussed with the patient and his . Will continue to monitor.
[2020-04-07 17:20] VITALS: BP 119/81
--- NOTE | 2020-04-07 19:13 | PDOC ---
PROGRESS NOTES Date of Service DATE: 04/07/20 TIME: 19:09 Subjective Subjective Problems overnight: Hip is a bit sore he is able to bear weight well Objective Vital Signs Vital Signs Date Time Temp Pulse Resp B/P (MAP) Pulse Ox O2 Delivery O2 Flow Rate FiO2 04/07/20 17:20 93 Room Air 04/07/20 17:20 98.4 89 20 119/81 (94) 98.4 04/06/20 22:55 2.0 Physical Exam He soaked the dressing previously and has some bleeding in the area of his incision at his groin crease. Leg lengths equal distal neurovascular status intact thigh and calf are soft and nontender Labs Laboratory Tests Test 04/06/20 11:35 04/07/20 07:50 Prothrombin Time 12.6 SEC (11.7-14.0) 16.1 SEC (11.7-14.0) Prothromb Time International Ratio 1.0 (0.8-1.1) 1.3 (0.8-1.1) Activated Partial Thromboplast Time 28 SEC (24-38) Hemoglobin 12.2 g/dL (13.0-17.5) Hematocrit 37.2 % (39.0-53.0) Mean Corpuscular Hemoglobin Concent 33 g/dL (31-37) Laboratory Tests Test 04/07/20 07:50 Hemoglobin 12.2 g/dL (13.0-17.5) Hematocrit 37.2 % (39.0-53.0) Mean Corpuscular Hemoglobin Concent 33 g/dL (31-37) Prothrombin Time 16.1 SEC (11.7-14.0) Prothromb Time International Ratio 1.3 (0.8-1.1) Imaging Intra-Op films show excellent placement of total hip arthroplasty components reproducing leg length and offset Assessment Assessment POD#1 total hip Plan Plan of Care Weightbearing as tolerated, no hip precautions due to anterior approach Coumadin anticoagulation Plan a Prevena dressing due to his drainage and location of the bleeding at his groin crease Justicifation of Admission Dx: Justifications for Admission: Justification of Admission Dx: Yes Comments: Adjusting pain medications and need to manage dressing with Prevena HARJIT KOENIG MD Apr 07, 2020 19:13
[2020-04-07] MEDS: ALPRAZolam 1 MG TABLET PO PRN (21:10)
[2020-04-08] MEDS: oxyCODONE IR 5 MG TABLET PO PRN ×4 (01:26→16:22)
[2020-04-08] MEDS: ACETAMINOPHEN 500 MG TABLET PO SCH ×3 (03:02→15:00)
[2020-04-08] MEDS: traMADol 50 MG TABLET PO SCH ×3 (05:38→12:13)
[2020-04-08 05:39] VITALS: BP 117/80
[2020-04-08] MEDS: oxyCODONE/APAP 10/325 1 TAB TABLET PO PRN ×2 (08:07→16:20)
[2020-04-08] MEDS: CHOLECALCIFEROL (VITAMIN D3) 5,000 UNIT CAPSULE PO SCH (08:07)
[2020-04-08] MEDS: SENNOSIDES/DOCUSATE 8.6/50MG TABLET. PO SCH (08:07)
[2020-04-08] MEDS: MELOXICAM 7.5 MG TABLET PO SCH (08:07)
[2020-04-08] MEDS: FLUoxetine HCL 20 MG CAPSULE PO SCH (08:08)
[2020-04-08] MEDS: FERROUS SULFATE 325 MG TABLET. PO SCH ×2 (08:08→17:00)
[2020-04-08] MEDS: MULTIVITAMIN with MINERAL TABLET. PO SCH (08:08)
[2020-04-08] MEDS: GABAPENTIN 300 MG CAPSULE. PO SCH ×2 (08:08→16:19)
[2020-04-08] MEDS: CALCIUM CARBONATE 500 MG TABLET PO SCH (08:08)
[2020-04-08] MEDS: LISINOPRIL 20 MG TABLET PO SCH (08:14)
[2020-04-08 08:19] LABS: PROTHROMBIN TIME PATIENT 25.7 SEC (11.7-14.0)
[2020-04-08] MEDS ORDERED: MAG HYDROX/ALUMINUM HYD/SIMETH 30 ML ORAL.SUSP PO ONE (09:15)
[2020-04-08] MEDS ORDERED: GABA600T7 PO (09:22)
--- NOTE | 2020-04-08 09:24 | DISCH ---
DISCHARGE INSTRUCTIONS Condition on Discharge Condition on Discharge: Stable Activity After Discharge Activity Instructions for Disc: Activity as tolerated Bathing Instructions: Shower-keep dressing dry Lifting Instructions after Dis: No heavy lifting Exercise Instruction after Dis: Progress as tolerated Driving Instructions after Dis: Do not drive Weight Bearing Status after Di: No restrictions Diet after Discharge Diet after Discharge: Regular Wound Incision Care Wound/Incision Care: Ice to area for comfort, Do not change dressing Contacting the DRJoselyn after DC Call your doctor for: Concerns you may have Follow-Up Follow up with: Dr. Dumont 2 weeks postoperatively Warfarin Follow-Up Warfarin Follow UP: [place] antico[facility] clinic to manage Coumadin dosing and testing HARJIT DUMONT MD Apr 08, 2020 09:24
[2020-04-08 11:59] VITALS: BP 109/75
[2020-04-08 13:53] LABS: HEMATOCRIT 33.3 % (39.0-53.0); HEMOGLOBIN 11.2 g/dL (13.0-17.5)
--- NOTE | 2020-04-08 15:53 | NUR ---
Pharmacy Warfarin Dosing Note S:Pharmacy consulted to assist with anticoagulation therapy started 04/06/20 with target INR: 1.6 - 2.5 O:YORDY WOODRUFF Jeffrey is a 70 year old M with ANT LABS: Last INR: 2.4 Last HGB: 11.2 Last HCT: 33.3 Last PLT: - Ongoing Drug Interactions: PROZAC, MOBIC A:INR within desired Range. P: Warfarin dose: Hold Warfarin today prior to discharge. Give 2.5 mg daily. End of therapy 05/17/20 (6 weeks of therapy). Indication for warfarin is prevention of VTE after major joint surgery. YULISSA JACKSON [facility], 04/08/20 1551
[2020-04-08 15:59] VITALS: BP 124/86
[2020-04-08] MEDS ORDERED: WARF2.5T71 PO (16:37)
--- NOTE | 2020-04-08 18:50 | NUR ---
Discharge instructions given with prescriptions. Answered questions and concerns. Verbalized understanding. Pt discharged home accompanied by spouse. Escorted out by w/c.
--- NOTE | 2020-04-09 07:10 | DS ---
DATE OF DISCHARGE: 04/08/2020 ORTHOPEDIC DISCHARGE SUMMARY PRINCIPAL DIAGNOSIS: Degenerative joint disease of left hip. PROCEDURE: Left total hip arthroplasty. DISPOSITION: Discharge is home with outpatient physical therapy. Follow up with Dr. Dumont in 2 weeks postop. DISPOSITION MEDICATIONS: Warfarin as directed by Anticoagulation Clinic at [facility], Percocet 10/325 one p.o. q.6 hours p.r.n. pain and gabapentin 300 mg p.o. t.i.d. scheduled. Resume preoperative medications. ACTIVITY: Weightbearing as tolerated. Avoid extremes of range of motion, but no formal hip precautions. BRIEF DESCRIPTION OF HOSPITAL COURSE: The patient is a 70-year-old male who underwent uncomplicated anterior approach total hip arthroplasty on 04/06/2020. He had had some postoperative drainage at the area of the left groin crease and his dressings were changed over to a Prevena wound VAC type dressing, which did better, although he was complaining of some burning pain, started on some gabapentin, which he was eventually discharged on and otherwise getting up and around well with physical therapy in terms of ambulation and transfers. He remained medically stable and was discharged home in stable condition with home health followup planned. HARJIT DUMONT MD DR: LISA/anju JOB#: [id number] / [id number]
--- NOTE | 2020-04-12 19:07 | PATHOLOGY ---
[facility] Accession Number: [id number] . 01 Material submitted: . hip - LEFT HIP BONE AND TISSUE. Modifiers: left . 01 Clinical history: . DJD,LEFT TOTAL HIP ARTHROPLASTY (ANTERIOR) . 02 Diagnosis: Segments of bone and articular cartilage, and focal attached portions of synovial and fibroadipose tissue, left anterior total hip arthroplasty: - Degenerative arthritis. (JPM/db; 04/12/2020) LBQ 04/12/2020 1817 Local . 02 Electronically signed: . John Chinchilla MD, Pathologist NPI- [id number] . 01 Gross description: . Received in formalin labeled "Vivek Malloy, left hip bone and tissue" is a 9.5 x 8.6 x 4.0 cm aggregate of villalobos-white to villalobos-brown bone fragments, ranging from 1.2-4.5 cm in greatest dimension. Soft tissue is not grossly identified. Multiple areas display cartilage covered surfaces, with focal roughening and eburnation. Inorganic Chemist sections are submitted in cassettes A1-A2 following decalcification. ([facility] [place]; 04/08/2020) [facility] 04/08/2020 1304 Local . 02 Pathologist provided ICD-10: M16.12 . 02 CPT . 853353, 470034 Specimen Comment: A courtesy copy of this report has been sent to [phone] Specimen Comment: Report sent to Performed at: 01 [facility] [address], [place] [id number] MD Attila Archuleta MD Phone: [phone] Performed at: 02 [facility] [address] [place], [place] [id number] MD John Chinchilla MD Phone: [phone]
[2020-04-13] MEDS ORDERED: ERGOCALCIFEROL (VITAMIN D2) 50,000 UNIT CAPSULE. PO SCH (09:00)
[2020-07-28] MEDS ORDERED: PANT40TA77 PO (13:23)
[2020-07-28] MEDS ORDERED: HYDR-2761 PO (13:23)
[2020-07-28] MEDS ORDERED: ACET325T21 PO (13:23)
== END 2020-04-08 18:50 | disposition home or self-care (01) ==
LOC: SURG 11:14 → 4 SOUTHEST 18:00
PROVIDERS: ADMIT Orthopaedic Surgery; ATTEND Orthopaedic Surgery
DX: M16.12 Unilateral primary osteoarthritis, left hip (principal); I10 Essential (primary) hypertension; F41.9 Anxiety disorder, unspecified; Z87.442 Personal history of urinary calculi; Z96.611 Presence of right artificial shoulder joint; Z96.642 Presence of left artificial hip joint; Z23 Encounter for immunization; Z98.890 Other specified postprocedural states; Z79.899 Other long term (current) drug therapy
CPT/HCPCS: 27130; 36415; 85014; 85018; 85610; 85730; 86850; 86900; 86901; 90471; 90686; 96365; 96366; 96375; 97116; 97150; 97162; 97166; 97530; 97535; C1776; C1887; G0378; G0379; J0171; J0690; J1100; J1200; J1885; J2270; J2370; J2405; J2704; J2710; J2795; J3010; J3370; J3490; 76000; 88304; 88311; C1880

== ENCOUNTER 2020-07-06 13:47 | Emergency (ER) | payer MEDICARE ==
[~2020-07-06] VITALS: Ht 182.9 cm; Wt 102.0 kg
[~2020-07-06 13:47] MED LIST changes: -ACETAMINOPHEN 500 MG TABLET PO PRN; +DOCU-150 PO; -DOCU-158 PO; +GABA600T7 PO; -GABAPENTIN 300 MG CAPSULE. PO PRN; -HYDROmorphone 2 MG/ML VIAL IV PRN; -LIDOCAINE 1% PF 2 ML VIAL. ID PRN; -LIDOCAINE 2% PF 5 ML VIAL. ONE; -MELOXICAM 7.5 MG TABLET PO PRN; -MORPHINE SULFATE 5 MG, KETOROLAC 30MG VIAL 30 MG, ROPIVacaine 0.5% PF 60 ML, EPINEPHrin... INT ART ONE; -ONDANSETRON PF 4 MG/2 ML VIAL. IV PRN; -PROCHLORPERAZINE 10 MG/2 ML VIAL. IV PRN; -PROPOFOL 10 MG/ML (20ML) VIAL. IV ONE; -TRANEXAMIC ACID 1,000 MG in IV NS 50ML -- 1ST BAG INJ ONE; -TRANEXAMIC ACID 1,000 MG in IV NS 50ML -- 2ND BAG INJ ONE; +WARF2.5T71 PO; -fentaNYL PF VIAL 100 MCG/2 ML VIAL IV PRN
[2020-07-06 15:12] LABS: BASO # 0.1 x10^3/uL (0.0-0.2); BASO % 1 % (0-3); EOS % 0 % (0-3); HEMOGLOBIN 14.4 g/dL (13.0-17.5); LYMPH # 0.8 x10^3/uL (1.0-4.8); LYMPH % 13 % (24-48); MEAN CORPUSCULAR HEMOGLOBIN 31 pg (25-35); MEAN CORPUSCULAR HGB CONC 33 g/dL (31-37); MEAN CORPUSCULAR VOLUME 94 fL (79-100); MONO # 0.4 x10^3/uL (0.0-1.1); MONO % 6 % (0-9); NEUT # 5.1 x10^3/uL (1.8-7.7); NEUT % 80 % (31-73); PLATELET COUNT 321 x10^3/uL (140-400); RED BLOOD COUNT 4.59 x10^6/uL (4.30-5.70); RED CELL DISTRIBUTION WIDTH 14.7 % (11.5-14.5); WHITE BLOOD COUNT 6.4 x10^3/uL (4.0-11.0)
[2020-07-06] MEDS ORDERED: ONDANSETRON PF 4 MG/2 ML VIAL. IV ONE (15:15)
[2020-07-06] MEDS ORDERED: IV NORMAL SALINE 1000ML BAG 1,000 ML IV ONE (15:15)
[2020-07-06] MEDS ORDERED: MORPHINE SULFATE 4 MG/ML VIAL. IV ONE (15:15)
[2020-07-06 15:26] LABS: BILIRUBIN,URINE NEGATIVE (NEG); CLARITY,URINE CLEAR; COLOR,URINE YELLOW; NITRITE,URINE NEGATIVE (NEG); PROTEIN,URINE NEGATIVE (NEG-TRACE); UROBILINOGEN,URINE 0.2 mg/dL (0.2 mg/dL)
[2020-07-06 15:30] LABS: FECAL OB PT NEGATIVE (NEG)
[2020-07-06 15:36] LABS: CALCIUM 9.6 mg/dL (8.5-10.1); CREATININE 1.7 mg/dL (0.7-1.3); GFR 40.2; POTASSIUM 4.5 mmol/L (3.5-5.1)
[2020-07-06 15:42] LABS: BACTERIA,URINE 0 /HPF (0-FEW); RBC,URINE OCC /HPF (0-2)
[2020-07-06 15:42] LABS: ALBUMIN 3.7 g/dL (3.4-5.0); ALBUMIN/GLOBULIN RATIO 0.9 (1.0-1.7); MAGNESIUM 2.2 mg/dL (1.8-2.4); TOTAL BILIRUBIN 0.3 mg/dL (0.2-1.0); TOTAL PROTEIN 7.7 g/dL (6.4-8.2)
--- NOTE | 2020-07-06 16:26 | RAD ---
CT abdomen pelvis without contrast dated 07/06/2020. Comparison made to 09/26/2019. CLINICAL INDICATION: Left-sided abdominal pain diarrhea for 3 days. TECHNIQUE: Contiguous axial imaging the abdomen pelvis performed without the administration of IV contrast. Oral contrast was administered. One or more of the following individualized dose reduction techniques were utilized for this examinat ion: 1. Automated exposure control 2. Adjustment of the mA and/or kV according to patient size 3. Use of iterative reconstruction technique FINDINGS: Limited images of lung bases show patchy and linear opacity in the dependent lower lobes, likely scar or atelectasis. Heart size within normal limits. No pleural or pericardial effusion. Coronary artery calcifications. Solid abdominal viscera not well evaluated in the absence of contrast material. No apparent attenuati on abnormality of the liver or spleen. Pancreas, adrenal glands unremarkable. There are calcified gal lstones. There are multiple small punctate calcific stones along the calyceal margins of the left kidney. Ther e are a few punctate calcifications on the right. No evidence of ureteral stone or hydronephrosis. Partially opacified GI tract normal in caliber and contour. No focal bowel wall thickening. The appen murtaza is normal in caliber. No ascites or lymphadenopathy. Abdominal aorta normal in caliber. Images of the pelvis show a prominent calcification at the right UVJ that measures about 1.3 cm. This is unchanged from prior study. No hydroureter. No hydronephrosis. Urinary bladder is nondistended. P rostate gland is normal in size. No free fluid. No pelvic lymphadenopathy. Bone windows show no acute findings. Multilevel spondylosis. Mild to moderate foraminal stenosis at t he lower lumbar levels. IMPRESSION: 1. No acute abnormality of abdomen or pelvis. Normal appendix. 2. Large calcific stone at the right UVJ is unchanged from prior study. No hydronephrosis or hydroure ter. 3. Cholelithiasis. 4. Bilateral nephrolithiasis, nonobstructive. Electronically signed by: Jasson Esposito MD (07/06/2020 4:23 PM) [facility]
--- NOTE | 2020-07-06 16:35 | ED.ADGEN ---
Past Medical History Past Medical History: Anxiety, Depression, Hypertension, Other Additional Past Medical Histor: vertigo, angioedema, Hematoma Past Surgical History: No Surgical History, Hip Replacement, Other Additional Past Surgical Histo: stent for kidney stones, right shoulder Smoking Status: Never Smoker Alcohol Use: None Drug Use: Other General Adult EDM: Chief Complaint: ABDOMINAL PAIN HPI: HPI: Patient is a 70 year old male who presents the emergency department with complaints of diarrhea for the last 3 days and left-sided abdominal pain. Patient reports he had taken a bottle of mag citrate and some laxatives for relief of constipation. His symptoms progressed to diarrhea, and over the last day and a half the patient has drank 1-1/2 bottles of Pepto with no improvement in his discomfort. The patient reports concern because he had a dark black stool today. He denies any fever, cough, sore throat, body aches, fatigue, nausea, chest pain, palpitations, dysuria, hematuria, or difficulty voiding. Patient currently rates his pain a 10 out of 10 on pain scale describes it as a sharp cramping sensation. Review of Systems: Review of Systems: Complete ROS is negative unless otherwise noted in HPI. Current Medications: Current Medications Medications (Trade) Dose Ordered Sig/[facility] Start Time Stop Time Status Last Admin Dose Admin Morphine Sulfate (Morphine Sulfate) 4 mg 1X ONCE 07/06/20 15:15 07/06/20 15:18 DC 07/06/20 15:32 4 MG Ondansetron HCl (Zofran) 4 mg 1X ONCE 07/06/20 15:15 07/06/20 15:18 DC 07/06/20 15:32 4 MG Sodium Chloride 1,000 ml @ 1,000 mls/hr 1X ONCE 07/06/20 15:15 07/06/20 16:14 DC 07/06/20 15:32 1,000 MLS/HR Allergies: Allergies: Allergies Coded Allergies Type Severity Reaction Last Updated Verified No Known Drug Allergies 04/06/20 No Physical Exam: PE: See Above Constitutional: Well developed, well nourished, no acute distress, non-toxic appearance. [] HENT: Normocephalic, atraumatic, bilateral external ears normal, nose normal, oropharynx moist with black discoloration to the tongue.. [] Eyes: PERRLA, EOMI, conjunctiva normal, no discharge. [] Neck: Normal range of motion, no stridor. [] Cardiovascular:Heart rate regular rhythm Lungs & Thorax: Respirations even and unlabored, no retractions, no respiratory distress Abdomen: soft, left-sided tenderness to palpation, no rebound tenderness, no guarding, no palpable cyst, no pulsatile masses sounds active in all 4 quadrants Rectal Exam: Normal tone, No mass, Positive control Stool: Brown Guaiac: Negative Skin: Warm, dry, no erythema, no rash. [] Extremities: No cyanosis, ROM intact, no edema. [] Neurologic: Alert and oriented X 3, letter, normal sensory, no focal deficits noted. [] Psychologic: Affect normal, judgement normal, mood normal. [] Current Patient Data: Labs: Laboratory Tests Test 07/06/20 14:30 07/06/20 14:45 07/06/20 15:08 Urine Collection Type Unknown Urine Color Yellow Urine Clarity Clear Urine pH 5.0 (<5.0-8.0) Urine Specific [place] 1.025 (1.000-1.030) Urine Protein Negative mg/dL (NEG-TRACE) Urine Glucose (UA) Negative mg/dL (NEG) Urine Ketones (Stick) 15 mg/dL (NEG) Urine Blood Negative (NEG) Urine Nitrite Negative (NEG) Urine Bilirubin Negative (NEG) Urine Urobilinogen Dipstick 0.2 mg/dL (0.2 mg/dL) Urine Leukocyte Esterase Negative (NEG) Urine RBC Occ /HPF (0-2) Urine WBC 1-4 /HPF (0-4) Urine Bacteria 0 /HPF (0-FEW) Urine Mucus Slight /LPF White Blood Count 6.4 x10^3/uL (4.0-11.0) Red Blood Count 4.59 x10^6/uL (4.30-5.70) Hemoglobin 14.4 g/dL (13.0-17.5) Hematocrit 43.0 % (39.0-53.0) Mean Corpuscular Volume 94 fL (79-100) Mean Corpuscular Hemoglobin 31 pg (25-35) Mean Corpuscular Hemoglobin Concent 33 g/dL (31-37) Red Cell Distribution Width 14.7 % (11.5-14.5) H Platelet Count 321 x10^3/uL (140-400) Neutrophils (%) (Auto) 80 % (31-73) H Lymphocytes (%) (Auto) 13 % (24-48) L Monocytes (%) (Auto) 6 % (0-9) Eosinophils (%) (Auto) 0 % (0-3) Basophils (%) (Auto) 1 % (0-3) Neutrophils # (Auto) 5.1 x10^3/uL (1.8-7.7) Lymphocytes # (Auto) 0.8 x10^3/uL (1.0-4.8) L Monocytes # (Auto) 0.4 x10^3/uL (0.0-1.1) Eosinophils # (Auto) 0.0 x10^3/uL (0.0-0.7) Basophils # (Auto) 0.1 x10^3/uL (0.0-0.2) Sodium Level 138 mmol/L (136-145) Potassium Level 4.5 mmol/L (3.5-5.1) Chloride Level 102 mmol/L (98-107) Carbon Dioxide Level 19 mmol/L (21-32) L Anion Gap 17 (6-14) H Blood Urea Nitrogen 28 mg/dL (8-26) H Creatinine 1.7 mg/dL (0.7-1.3) H Estimated GFR (Cockcroft-Gault) 40.2 BUN/Creatinine Ratio 16 (6-20) Glucose Level 99 mg/dL (70-99) Calcium Level 9.6 mg/dL (8.5-10.1) Magnesium Level 2.2 mg/dL (1.8-2.4) Total Bilirubin 0.3 mg/dL (0.2-1.0) Aspartate Amino Transferase (AST) 19 U/L (15-37) Alanine Aminotransferase (ALT) 26 U/L (16-63) Alkaline Phosphatase 118 U/L (46-116) H Total Protein 7.7 g/dL (6.4-8.2) Albumin 3.7 g/dL (3.4-5.0) Albumin/Globulin Ratio 0.9 (1.0-1.7) L Lipase 260 U/L (73-393) Stool Occult Blood Negative (NEG) Laboratory Tests 07/06/20 14:45 Laboratory Tests 07/06/20 14:45 Vital Signs: Vital Signs Date Time Temp Pulse Resp B/P (MAP) Pulse Ox O2 Delivery O2 Flow Rate FiO2 07/06/20 17:02 94 16 95 07/06/20 14:48 98.6 140/95 (110) 98.6 07/06/20 14:25 Room Air EKG: EKG: [] Heart Score: C/O Chest Pain: No Risk Scores: Score 0 - 3: 2.5% MACE over next 6 weeks - Discharge Home Score 4 - 6: 20.3% MACE over next 6 weeks - Admit for Clinical Observation Score 7 - 10: 72.7% MACE over next 6 weeks - Early Invasive Strategies Radiology/Procedures: Radiology/Procedures: PROCEDURE: CT ABDOMEN PELVIS WO CONTRAST CT abdomen pelvis without contrast dated 07/06/2020. Comparison made to 09/26/2019. CLINICAL INDICATION: Left-sided abdominal pain diarrhea for 3 days. TECHNIQUE: Contiguous axial imaging the abdomen pelvis performed without the administration of IV contrast. Oral contrast was administered. One or more of the following individualized dose reduction techniques were utilized for this examination: 1. Automated exposure control 2. Adjustment of the mA and/or kV according to patient size 3. Use of iterative reconstruction technique FINDINGS: Limited images of lung bases show patchy and linear opacity in the dependent lower lobes, likely scar or atelectasis. Heart size within normal limits. No pleural or pericardial effusion. Coronary artery calcifications. Solid abdominal viscera not well evaluated in the absence of contrast material. No apparent attenuation abnormality of the liver or spleen. Pancreas, adrenal glands unremarkable. There are calcified gallstones. There are multiple small punctate calcific stones along the calyceal margins of the left kidney. There are a few punctate calcifications on the right. No evidence of ureteral stone or hydronephrosis. Partially opacified GI tract normal in caliber and contour. No focal bowel wall thickening. The appendix is normal in caliber. No ascites or lymphadenopathy. Abdominal aorta normal in caliber. Images of the pelvis show a prominent calcification at the right UVJ that measures about 1.3 cm. This is unchanged from prior study. No hydroureter. No hydronephrosis. Urinary bladder is nondistended. Prostate gland is normal in size. No free fluid. No pelvic lymphadenopathy. Bone windows show no acute findings. Multilevel spondylosis. Mild to moderate foraminal stenosis at the lower lumbar levels. IMPRESSION: 1. No acute abnormality of abdomen or pelvis. Normal appendix. 2. Large calcific stone at the right UVJ is unchanged from prior study. No hydronephrosis or hydroureter. 3. Cholelithiasis. 4. Bilateral nephrolithiasis, nonobstructive. Electronically signed by: Jasson Esposito MD (07/06/2020 4:23 PM) [facility] [] Course & Med Decision Making: Course & Med Decision Making Pertinent Labs and Imaging studies reviewed. (See chart for details) 70-year-old male presented emergency department with complaints of 3 days of diarrhea and left-sided abdominal pain. Work-up included's, medications, and a CT. CBC is unremarkable; CMP revealed BUN of 28, creatinine of 1.7, patient's creatinine is typically around 1.5 her labs reviewed. Alk phos was 100; UA was unremarkable; puking occult blood was negative. CT the patient's abdomen reviewed no acute abnormality of the abdomen or pelvis. Patient's vital signs are stable throughout emergency department stay. I discussed the results with the patient I advised him to stop taking Pepto-Bi smol as this was because of his stools. I encouraged him to follow a bland diet until his stools have returned to normal. Instructed him to return to the ER if his symptoms worsened or fever develop. Patient verbalized an understanding of home care, medications, follow-up, and return to ED instructions and was in agreement with the plan of care. Romelia Disclaimer: Romelia Disclaimer: This electronic medical record was generated, in whole or in part, using a voice recognition dictation system. 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 Increase clear fluids and follow the diet instructions provided. Follow-up with your primary care doctor in 1 to 2 days, return to the ER if your symptoms worsen or fever dev elops. Problem Qualifiers Primary Impression: Diarrhea Diarrhea type: unspecified type Qualified Codes: R19.7 - Diarrhea, unspecified Additional Impressions: Abdominal pain Abdominal location: left lower quadrant Qualified Codes: R10.32 - Left lower quadrant pain BONNY ROTH APRN Jul 06, 2020 16:35
[2020-07-06 17:02] VITALS: BP 141/90
== END 2020-07-06 17:26 | disposition home or self-care (01) ==
LOC: ER 13:47
DX: R10.32 Left lower quadrant pain (principal); R19.7 Diarrhea, unspecified; F55.2 Abuse of laxatives; F41.9 Anxiety disorder, unspecified; F32.9 Major depressive disorder, single episode, unspecified; I10 Essential (primary) hypertension; Z87.442 Personal history of urinary calculi; Z98.890 Other specified postprocedural states
CPT/HCPCS: 36415; 74176; 80053; 81001; 82274; 83690; 83735; 85025; 96361; 96374; 96375; 99285; J2270; J2405; J7030

== ENCOUNTER → 2021-01-11 | Outpatient (CLI) | payer MEDICARE ==
[2020-07-28 15:30] VITALS: BP 108/65
[~2021-01-11] MED LIST changes: +ACET325T21 PO; +CLON0.5T PO; +CYAN25003 SL; -DOCU-150 PO; +DOCU-158 PO; -FLUO10CA15 PO; +FLUO10CA17 PO; +HYDR-2761 PO; +LACT1CAP6 PO; +MELO15TA6 PO; +OXYC5CAP PO; +PANT40TA77 PO; +WARF-31 PO
[2021-01-11 13:13] LABS: ALBUMIN 3.6 g/dL (3.4-5.0); BASO % 1 % (0-3); CALCIUM 8.9 mg/dL (8.5-10.1); CREATININE 1.5 mg/dL (0.7-1.3); EOS # 0.1 x10^3/uL (0.0-0.7); EOS % 1 % (0-3); GFR 46.4; HEMATOCRIT 38.5 % (39.0-53.0); HEMOGLOBIN 12.7 g/dL (13.0-17.5); LYMPH # 0.6 x10^3/uL (1.0-4.8); LYMPH % 11 % (24-48); MEAN CORPUSCULAR HEMOGLOBIN 27 pg (25-35); MEAN CORPUSCULAR HGB CONC 33 g/dL (31-37); MEAN CORPUSCULAR VOLUME 83 fL (79-100); MONO # 0.5 x10^3/uL (0.0-1.1); MONO % 9 % (0-9); NEUT # 4.7 x10^3/uL (1.8-7.7); NEUT % 78 % (31-73); PLATELET COUNT 264 x10^3/uL (140-400); POTASSIUM 3.8 mmol/L (3.5-5.1); RED BLOOD COUNT 4.62 x10^6/uL (4.30-5.70); RED CELL DISTRIBUTION WIDTH 17.9 % (11.5-14.5)
[2021-01-11 13:23] LABS: PROTHROMBIN TIME PATIENT 12.8 SEC (11.7-14.0)
[2021-01-12 03:11] LABS: HEMOGLOBIN A1C 5.2 % (4.8-5.6)
== END ==
LOC: SURGPAT 12:17
PROVIDERS: ATTEND Orthopaedic Surgery
DX: Z01.812 Encounter for preprocedural laboratory examination (principal); M17.11 Unilateral primary osteoarthritis, right knee
CPT/HCPCS: 36415; 80048; 82040; 82306; 83036; 85025; 85610; 85651; 85730; 87641

== ENCOUNTER → 2021-01-31 | Outpatient (CLI) | payer MEDICARE ==
[2021-01-27 12:05] VITALS: BP 150/90
[2021-01-31 16:02] LABS: PROTHROMBIN TIME PATIENT 23.1 SEC (11.7-14.0)
== END ==
LOC: LAB 14:50
PROVIDERS: ATTEND Orthopaedic Surgery
DX: Z79.01 Long term (current) use of anticoagulants (principal); Z96.60 Presence of unspecified orthopedic joint implant
CPT/HCPCS: 36415; 85610

== ENCOUNTER → 2021-05-11 | Outpatient (CLI) | payer MEDICARE ==
[2021-01-27 12:05] VITALS: BP 150/90
--- NOTE | 2021-05-11 14:25 | KCIC ---
Exam: MR lumbar spine without contrast CLINICAL INDICATION: Reason: LUMBOSACRAL NEURITIS / Spl. Instructions: / History: Pt fell down the s tairs one month ago. C/O back pain in middle back/neck. COMPARISON: None available. TECHNIQUE: Multiplanar multisequence MR images of the lumbar spine without contrast FINDINGS: The lumbar spine is normal in alignment. There is no acute fracture. Mild superior endplate deformity of L2 is chronic appearing. There is mild scoliosis of the lower lumbar spine. There is mild diffuse disc height loss and desiccation. Background marrow signal is normal. The conus medullaris terminate s at L1. The cauda equina is normal. The visualized retroperitoneum and paraspinous musculature are n ormal. At T12-L1: There is no disc herniation or canal or foraminal narrowing. At L1-L2: There is no disc herniation or canal or foraminal narrowing. At L2-L3: There is a shallow broad-based disc bulge and mild facet arthrosis with mild ligamentum f lavum thickening. This results in mild canal narrowing. There is mild left foraminal narrowing. At L3-L4: There is a right foraminal/extraforaminal disc protrusion superimposed on a shallow broad- based disc bulge. Mild facet arthrosis. This results in mild canal narrowing with at least mild narro wing of the right lateral recess where the disc at least abuts the traversing right L4 nerve root. Th ere is moderate mild left foraminal narrowing. At L4-L5: There is a broad-based disc bulge and moderate left and mild right facet arthrosis with li gament flavum thickening. There is also posterior endplate proliferation on the left. This results in moderate canal narrowing and left greater than right lateral recess narrowing. There is severe left foraminal narrowing with compression of the exiting nerve root. Mild to moderate right foraminal narr owing. At L5-S1: Small central disc extrusion extending slightly inferior from the disc space, superimpose d on disc osteophyte complex. There is posterior endplate proliferation, greater on the left. There i s also a 7 mm low signal structure in the left foramen suspicious for a small sequestered disc fragme nt, best seen on axial images 17, series 5 and 6. This results in severe left foraminal narrowing wit h compression of the exiting nerve root. There is moderate right foraminal narrowing. There is modera te left lateral recess narrowing but no central canal narrowing. No central canal narrowing. IMPRESSION: 1. No acute osseous abnormality. 2. Lumbar degenerative disc disease, greatest at L3-L4 through L5-S1. There is moderate canal narrowi ng at L4-L5. Severe left foraminal narrowing at L4-L5 and L5-S1. Moderate right foraminal narrowing a t L3-L4 and L5-S1. Electronically signed by: Bhavani Harper MD (05/11/2021 2:22 PM) [id number]
== END ==
LOC: KCIC MRI 12:51
PROVIDERS: ATTEND Physician Assistant
DX: M51.17 Intervertebral disc disorders with radiculopathy, lumbosacral region (principal); M48.07 Spinal stenosis, lumbosacral region; M51.26 Other intervertebral disc displacement, lumbar region; M25.78 Osteophyte, vertebrae; M43.8X6 Other specified deforming dorsopathies, lumbar region; M47.816 Spondylosis without myelopathy or radiculopathy, lumbar region
CPT/HCPCS: 72148

== ENCOUNTER → 2021-06-06 | Outpatient (CLI) | payer MEDICARE ==
[2021-01-27 12:05] VITALS: BP 150/90
--- NOTE | 2021-06-06 09:51 | KCIC ---
MRI cervical spine without contrast HISTORY: Cervicalgia. Worsening neck pain radiates across the bilateral shoulders and to the head. COMPARISON: Cervical spine x-rays May 30, 2019 FINDINGS: Craniocervical junction is intact. Cervical vertebral body height and alignment intact. The re is slight cervical spine scoliosis similar to the prior x-rays. No bone marrow edema of the cervic al spine. Cervical spinal cord demonstrates no lesion or syrinx. Imaged posterior cranial fossa is no rmal. Paraspinal tissues are normal. Diffuse degenerative disc desiccation is present throughout the cervical spine. Disc disease is described further in detail below. C2-C3: Mild left facet spurring. No disc bulge or herniation. No spinal canal or neural foraminal manjinder nosis. C3-C4: Bulky left facet spurring. Moderate facet hypertrophy. Bilateral uncovertebral spurring. Disc osteophyte. Mild spinal canal stenosis midline dural sac diameter is 10 mm. Moderate bilateral neural foraminal stenoses. C4-C5: Disc osteophyte contacts the ventral spinal cord eccentric to the left. Left greater than righ t uncovertebral spurring. Mild ligamentum flavum thickening. Moderate spinal canal stenosis dural sac diameter is 8 mm. Severe left lateral recess stenosis and severe left neural foraminal stenosis ther e may be impingement of the exiting left C5 nerve. Moderate right neural foraminal stenosis. C5-C6: Mild disc height loss. Disc osteophyte. Right uncovertebral bony spurring. Mild spinal canal s tenosis dural sac diameter is 10 mm. Severe right neural foraminal stenosis. Mild left neural foramin al stenosis. C6-C7: Mild disc height loss. Disc osteophyte. Left greater than right uncovertebral spurring. Severe left neural foraminal stenosis. Moderate right neural foraminal stenosis. Mild spinal canal stenosis dural sac diameter is 10 mm. C7-T1: No sizable disc bulge or herniation. No spinal canal or neural foraminal stenosis. IMPRESSION: Cervical scoliosis, disc disease and arthritis with bony spurring of the uncovertebral kranthi ints and facet joints, with multiple levels of spinal canal and neural foraminal stenosis. The greate st degree of spinal canal stenosis is moderate at C4-C5. See above. Electronically signed by: Ghanshyam Caldwell MD (06/06/2021 9:49 AM) [facility]
== END ==
LOC: KCIC MRI 07:52
PROVIDERS: ATTEND Nurse Practitioner
DX: M47.812 Spondylosis without myelopathy or radiculopathy, cervical region (principal); M41.82 Other forms of scoliosis, cervical region; M50.80 Other cervical disc disorders, unspecified cervical region; M48.02 Spinal stenosis, cervical region; M25.78 Osteophyte, vertebrae; M46.02 Spinal enthesopathy, cervical region; M47.892 Other spondylosis, cervical region; M50.322 Other cervical disc degeneration at C5-C6 level
CPT/HCPCS: 72141

== ENCOUNTER → 2021-06-14 | Outpatient (CLI) | payer MEDICARE ==
[2021-01-27 12:05] VITALS: BP 150/90
[~2021-06-14] MED LIST changes: +AMLO-186 PO; +DEXAMETHASONE PRES.FREE 10 MG/ML VIAL. ONE; +IOHEXOL 180 MG/ML 10 ML VIAL. ONE; +PRED1TAB3 PO
--- NOTE | 2021-06-14 16:09 | PDOC1 ---
INITIAL PAIN CONSULT DATE OF SERVICE: DOS: DATE: 06/14/21 TIME: 16:01 CHIEF COMPLAINT: Chief Complaint: Neck and left upper extremity pain HISTORY OF PRESENT ILLNESS: 71-year-old male presents with history of pain base the neck and left upper extremity posterior shoulder and into the arm with history of fall down some stairs about 2 months ago pain prior to that but this exacerbated significantly patient reports is gotten much worse with radiating into the triceps region as well as into the biceps region into the forearm to some extent as well into the hand with some numbness and tingling in all the fingers patient reports a pain in the base the neck is worse with repetitive motions looking to his left side also looking to the right side as well as with repetitive lifting and reaching forward reaching over his head with his left arm has fatigue and weakness in the left arm but no actual loss of motor function patient reports difficulty with fine motor movements as well with the left hand only but not dropping items or LOC of complete motor function. Patient reports it wakes him to sleep at least 4 times at night does not affect his bowel bladder control does affect his ability to walk he feels he is off balance when the pain is at its worst on the left side patient reports it also causes some headaches also pain in the left ear patient reports he is taken prednisone as well as oxycodone and Flexeril with the oxycodone Flexeril helping prednisone was not significantly helpful. Patient did have physical therapy which she reports was helpful at the time he still doing exercises from that as well. Patient reports his disability rating 0-10 10 being the worst is a 6 with at home responsibilities 7 with recreation 9 with social activity 8 with occupation 9 with sexual behavior 5 with self-care and 6 with life support activities specially sleeping. Patient of MRI scan of the cervical spine showing cervical scoliosis and disc's disease and arthritis with bony spurring with spinal stenosis most notable at C4-5 as well as C5-6 and C6-7 with moderate right neuroforaminal stenosis and left greater than right uncovertebral spurring with severe left neuroforaminal stenosis at the C6-7 level. PAST MEDICAL HISTORY: PMH: Arthritis, hypertension PREVIOUS SURGERIES: Past Surgical Hx: Left hip surgery, right shoulder surgery, right knee surgery CURRENT MEDICATIONS: Current Meds: Active Scripts Medications Dose Route/Sig Max Daily Dose Days Date Category Amlodipine Besylate 5 Mg Tablet 5 Mg PO DAILY 06/14/21 Reported Prednisone 1 Mg Tablet Unknown Dose PO DAILY 06/14/21 Reported Oxycodone Hcl 5 Mg Capsule 5 Mg PO PRN Q4HRS PRN 01/26/21 Rx Probiotic (Lactobacillus Acidophilus) 1 Each Capsule 1 Cap PO TID 10 01/11/21 Reported Vitamin B-12 (Cyanocobalamin (Vitamin B-12)) 2,500 Mcg Tab.subl 1 Tab SL DAILY 30 01/11/21 Reported Klonopin (Clonazepam) 0.5 Mg Tablet 1 Tab PO DAILY 01/11/21 Reported Fluoxetine Hcl 40 Mg Capsule 60 Mg PO DAILY 10/20/19 Reported ALLERGIES; Allergies: Coded Allergies: No Known Drug Allergies (Unverified , 01/25/21) FAMILY HISTORY: Family Hx: No major medical problems or conditions that he is aware of. SOCIAL HISTORY: Social Hx: Patient does not mynor alcohol does not smoke not use any illegal illicit recreational drugs is lives with his spouse is currently retired and lives locally in [place], [place] REVIEW OF SYSTEMS: ROS: Positive for those items mentioned in history of present illness, all systems are reviewed, otherwise negative ,and are complete full and well-documented on patient's chart. PHYSICAL EXAM: VS: Blood pressure is over 97 pulse 94 respirations 18 temperature 98.3 F height is 6 foot weight is 220 pounds. PE: PHYSICAL EXAMINATION: GENERAL: The patient is awake, alert, oriented, appropriate, very pleasant in demeanor HEENT: Shows normocephalic, atraumatic. Extraocular movements are intact and symmetrical. Oral cavity: Mucous membranes moist and pink. Dentition is intact. NECK: Shows anterior throat supple without palpable lymphadenopathy noted. Swallow reflex symmetrical. CHEST: Shows normal on inspection. Breath sounds are clear bilaterally, no rales rhonchi or wheezes auscultated. HEART: Shows S1, S2 clear. No murmurs auscultated. ABDOMEN: Soft, nontender, nondistended. No palpable organomegaly is noted. BACK: Shows spine grossly in the midline. Normal-appearing cervical lordotic curvature. Cervical paraspinous muscles show symmetrical with inspection, palpation some moderate tenderness diffusely bilaterally in the inferior aspect of the cervical paraspinous musculature more on the left than the right but without trigger points without atrophy hypertrophy. Patient shows good rotation of motion cervical spine with significant tenderness reported with left lateral rotation as well as right lateral rotation past 45 degrees. Patient has good extension as well as forward flexion some mild pain reported with extension only. There is slightly increased thoracic kyphosis, some minor flattening of the lumbar lordotic curvature. Lumbar paraspinous muscles show symmetrical on inspection, on palpation shows some moderate tenderness diffusely throughout the upper, middle and lower distribution of the paraspinous muscles without specific trigger points, without radiation of pain. The patient has good rotational motion of the lumbar spine, both laterally as well as extension and flexion with out significant difficulty. No tenderness over the spinous processes, sacrum or sacroiliac regions. 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 Peripheral pulses are 2+ radial no peripheral edema is noted bilaterally. Patient shows good shoulder shrug without loss of strength on resistance bilaterally but with moderate pain reported on the left this is true with abduction of the shoulders at 90 degrees with resistance as well but without loss of strength bilaterally. Lower extremities show deep tendon reflexes 1+ in the patellar and tendo calcaneus tendons. Motor exam is 4 on a scale of 5 with right dorsiflexion, extension, quadriceps and hamstring flexion and 4/5 on the left. Peripheral pulses are 1+ posterior tibial. No peripheral edema is noted bilaterally. Lower extremities are warm and dry to touch, equal in color and appearance. SKIN: Shows warm and dry, good turgor. No edema. No sores, rashes or bruising throughout. IMPRESSION: Impression: 71-year-old male with approximate 2-month history neck and left upper extremity pain and radicular fashion following a C6-7 dermatomal distribution. MRI scan cervical spine as noted Hypertension Arthritis Plan: Options were discussed with the patient and patient spouse who accompanied him to his visit today including conservative medical managements continued physical therapies and interventional techniques. Patient would like to pursue interventional techniques. We discussed a cervical epidural steroid injection using descriptions as well as anatomical models to describe the procedure. Risks were discussed including but not limited to: Bleeding, infection, possibility of epidural hematoma and subsequent neurological compromise, dural puncture, headaches, spinal cord and/or nerve damage, side effects of steroid medication, and poor results regarding pain control. Patient understands and wished to proceed. Patient will return to clinic in approximately 2 weeks for follow-up, was counseled as to return appointment, activity level, and side effects to be aware of. Procedure cervical epidural steroid injection at the C6-7 level, using local anesthetic under sterile prep and drape using C-arm fluoroscopic guidance under local anesthesia medications injected ; 20 mg dexamethasone +5 mL normal saline and 2 mL contrast; condition at discharge is stable patient tolerated procedure well. and had no complications ALEX MUNOZ MD Jun 14, 2021 16:09
--- NOTE | 2021-06-14 16:09 | PDOC4 ---
Procedure Note: ICD 10 Code: ICD 10 Code: M54.12 M50.30 M4 8.02 Procedure Note: Patient was consented for cervical epidural steroid injection with fluoroscopic guidance. Risks were discussed including but not limited to: Bleeding, infection, possibility of epidural hematoma and subsequent neurological compromise, dural puncture, headaches, spinal cord and/or nerve damage, side effects of steroid medication, and poor results regarding pain control. Patient understands and wished to proceed. Procedure cervical epidural steroid injection at the C6-7 level, using local anesthetic under sterile prep and drape using C-arm fluoroscopic guidance under local anesthesia medications injected ; 20 mg dexamethasone +5 mL normal saline and 2 mL contrast; condition at discharge is stable patient tolerated procedure well. and had no complications ALEX MUNOZ MD Jun 14, 2021 16:09
== END | disposition home or self-care (01) ==
LOC: PNCL 14:17
PROVIDERS: ATTEND Anesthesiology
DX: M50.10 Cervical disc disorder with radiculopathy, unspecified cervical region (principal); M48.02 Spinal stenosis, cervical region; M54.12 Radiculopathy, cervical region; I10 Essential (primary) hypertension; M19.90 Unspecified osteoarthritis, unspecified site; K21.9 Gastro-esophageal reflux disease without esophagitis; F41.9 Anxiety disorder, unspecified; F32.9 Major depressive disorder, single episode, unspecified; Z90.49 Acquired absence of other specified parts of digestive tract; Z98.890 Other specified postprocedural states; Z79.899 Other long term (current) drug therapy; Z82.49 Family history of ischemic heart disease and other diseases of the circulatory system
CPT/HCPCS: 62321; G0463; J1100; Q9965

== ENCOUNTER → 2021-06-29 | Outpatient (CLI) | payer MEDICARE ==
[2021-01-27 12:05] VITALS: BP 150/90
[~2021-06-29] MED LIST changes: +OXYC1TAB19 PO
--- NOTE | 2021-06-29 09:01 | PDOC ---
Progress Note - Pain Clinic Date of Service: DOS: DATE: 06/29/21 TIME: 08:55 Diagnosis: Dx: Cervical radiculopathy with cervical degenerative disease and cervical spinal stenosis History or Present Illness: HPI: 8-year-old male returns for follow-up status post cervical epidural steroid injection x1. Patient reports no significant improvement in the pain the base the neck and left upper extremity patient reports it feels hot on the left side of the neck as well as the face front of the ear and the jaw on the left side as well as into the shoulder and arm and the left upper extremity posterior deltoid also into the triceps and into the bicep region as well as into the forearm patient reports a 10 on scale 10 is worst 9 on average 9 its least is a 9 today patient reports aching tight shooting burning can be severe and unbearable patient reports no loss of motor function but significant fatigability of the left upper extremity. Patient reports significant difficulty sleeping is waking him at least every 4 hours at night no matter what position he sleeps in. We discussed pain medication with the patient and will call in new prescription of Percocet 7.5 mg with instructions side effects aware of discussed most notably constipation patient will maintain the hydration level while taking the medication as well. Physical Exam: VS: Blood pressure is 159/99 pulse 52 respirations 18 temperature 98.1 F height 6 foot weight is 218 pounds. PE: PHYSICAL EXAMINATION: GENERAL: The patient is awake, alert, oriented, appropriate, very pleasant in demeanor HEENT: Shows normocephalic, atraumatic. Extraocular movements are intact and symmetrical. NECK: Shows anterior throat supple without palpable lymphadenopathy noted. Swallow reflex symmetrical. CHEST: Shows normal on inspection. Breath sounds are clear bilaterally. HEART: Shows S1, S2 clear. No murmurs auscultated. ABDOMEN: Soft, nontender, nondistended. No palpable organomegaly is noted. BACK: Shows spine grossly in the midline. Normal-appearing cervical lordotic curvature. Cervical paraspinous muscles show symmetrical inspection on palpation some moderate tenderness diffusely throughout the upper middle lower decrease the paraspinous musculature worse on the left but some on the base of the cervical paraspinous muscles on the right as well. Patient shows some moderate tenderness with palpation of the medial superior trapezius on the left side as well but not the right no trigger points or asymmetry noted. There is slightly increased thoracic kyphosis, some minor flattening of the lumbar lordotic curvature. Lumbar paraspinous muscles show symmetrical on inspection, on palpation shows some moderate tenderness diffusely throughout the upper, middle and lower distribution of the paraspinous muscles without specific trigger points, without radiation of pain. The patient has good rotational motion of the lumbar spine, both laterally as well as extension and flexion without significant difficulty. No tenderness over the spinous processes, sacrum or sacroiliac regions. EXTREMITIES: Lower extremities show deep tendon reflexes 2 in the patellar and tendo calcaneus tendons. Motor exam is 4 on a scale of 5 with right dorsiflexion, extension, quadriceps and hamstring flexion and 4/5 on the left. Peripheral pulses are 1 posterior tibial. No peripheral edema is noted bilaterally. Lower extremities are warm and dry. 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 Peripheral pulses are 2+ radial. SKIN: Shows warm and dry, good turgor. No edema. No sores, rashes or bruising throughout. Procedure: Procedure: Options were discussed with the patient. Patient's old heart was reviewed his current medication regimen updated current review of systems updated today as well. We will proceed with a cervical epidural steroid injection today with fluoroscopic guidance. Risks were discussed including but not limited to: Bleeding, infection, possibility of epidural hematoma and subsequent neurological compromise, dural puncture, headaches, spinal cord and/or nerve damage, side effects of steroid medication, and poor results regarding pain control. Patient understands and wished to proceed. Patient again will be given new medication of Percocet 7.5 mg with instructions side effects aware discussed with the medication. Patient follow-up in approximate 2 weeks as scheduled. Medication Injected: Med Injected: Procedure cervical epidural steroid injection at the C6-7 level, using local anesthetic under sterile prep and drape using C-arm fluoroscopic guidance under local anesthesia medications injected ; 20 mg dexamethasone +5 mL normal saline and 2 mL contrast; condition at discharge is stable patient tolerated procedure well. and had no complications Condition at Discharge: Condition at Discharge: Condition at discharge is stable, patient Coleman the procedure well and had no complications. ALEX MUNOZ MD Jun 29, 2021 09:01
--- NOTE | 2021-06-29 09:01 | PDOC4 ---
Procedure Note: ICD 10 Code: ICD 10 Code: M54.12 M50.30 M4 8.02 Procedure Note: Patient was consented for cervical epidural steroid injection with fluoroscopic guidance. Risks were discussed including but not limited to: Bleeding, infection, possibility of epidural hematoma and subsequent neurological compromise, dural puncture, headaches, spinal cord and/or nerve damage, side effects of steroid medication, and poor results regarding pain control. Patient understands and wished to proceed. Procedure cervical epidural steroid injection at the C6-7 level, using local anesthetic under sterile prep and drape using C-arm fluoroscopic guidance under local anesthesia medications injected ; 20 mg dexamethasone +5 mL normal saline and 2 mL contrast; condition at discharge is stable patient tolerated procedure well. and had no complications ALEX MUNOZ MD Jun 29, 2021 09:01
== END | disposition home or self-care (01) ==
LOC: PNCL 08:10
PROVIDERS: ATTEND Anesthesiology
DX: M50.10 Cervical disc disorder with radiculopathy, unspecified cervical region (principal); M54.12 Radiculopathy, cervical region; M48.02 Spinal stenosis, cervical region; I10 Essential (primary) hypertension; K21.9 Gastro-esophageal reflux disease without esophagitis; F41.9 Anxiety disorder, unspecified; F32.9 Major depressive disorder, single episode, unspecified; M19.90 Unspecified osteoarthritis, unspecified site; Z79.899 Other long term (current) drug therapy; Z98.890 Other specified postprocedural states; Z82.49 Family history of ischemic heart disease and other diseases of the circulatory system
CPT/HCPCS: 62321; J1100; Q9965

== ENCOUNTER → 2021-07-13 | Outpatient (CLI) | payer MEDICARE ==
[2021-01-27 12:05] VITALS: BP 150/90
--- NOTE | 2021-07-13 08:37 | PDOC ---
Progress Note - Pain Clinic Date of Service: DOS: DATE: 07/13/21 TIME: 08:32 Diagnosis: Dx: Cervical radiculopathy with cervical degenerative disease and cervical spinal stenosis History or Present Illness: HPI: 71-year-old male returns for follow-up status post cervical epidural steroid injection x2 patient reports about 50% improvement initially but only for a few days the pain returned very quickly into the base the neck and the left upper extremity patient reports excruciating at this time with radiating pain into the shoulder and anterior aspect of the deltoid and anterior aspect of the bicep on the left side. Patient reports a 10 on scale 10 is worst 10 on average 8 its least and is an 8 today. Patient reports wakes him to sleep about every 2-3 hours wears repositioning constantly throughout the night Seen in the sleep patient reports no bowel or bladder incontinence describes the pain is aching and dull in the base the neck sharp and shooting tight shooting in the left upper extremity stabbing and becoming more constant patient reports no motor deficit but significant fatigability left upper extremity is limiting use of his arm significantly secondary to pain. Patient reports no overt motor loss but significant fatigability and difficulty with fine motor movements of the left hand as well as lifting light items and reaching forward so notices especially. Patient has significant difficulty turning his head and is posturing his upper body to left side because of the pain. Physical Exam: VS: Blood pressure is 165/104 pulse 52 respirations are 18 temperature is 98.0 F height is 6 foot weight is 2 1 8 pounds. PE: PHYSICAL EXAMINATION: GENERAL: The patient is awake, alert, oriented, appropriate, very pleasant in demeanor, patient accompanied by his . HEENT: Shows normocephalic, atraumatic. Extraocular movements are intact and symmetrical. Patient wearing eyeglasses. Oral cavity: Mucous membranes moist and pink. Dentition is intact. NECK: Shows anterior throat supple without palpable lymphadenopathy noted. Swallow reflex symmetrical. CHEST: Shows normal on inspection. Breath sounds are clear bilaterally, no rales or rhonchi auscultated. HEART: Shows S1, S2 clear. No murmurs auscultated. ABDOMEN: Soft, nontender, nondistended. No palpable organomegaly is noted. BACK: Shows spine grossly in the midline. Normal-appearing cervical lordotic curvature. Cervical paraspinous muscles show symmetrical inspection, on palpation some moderate tenderness diffusely bilaterally only diffusely without significant radiation left superior medial trapezius with some significant tenderness diffusely as well and into the lateral trapezius on the left side only. Patient shows limited rotation of motion cervical spine especially with extension significant pain reported the base of the neck on the left side this is true with left lateral rotation as well past 45 degrees. There is slightly increased thoracic kyphosis, some minor flattening of the lumbar lordotic curvature. EXTREMITIES: Upper extremities show deep tendon reflexes 2+ in the biceps and triceps tendons. 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 Peripheral pulses are 1+ radial. No peripheral edema is noted bilaterally. Upper extremities are warm and dry to touch, equal in color and appearance. Procedure: Procedure: Options were discussed with the patient. Patient's old chart was reviewed his current medication regimen updated current review of systems updated today as well. We will proceed with a cervical epidural steroid injection today with fluoroscopic guidance. Risks were discussed including but not limited to: Bleeding, infection, possibility of epidural hematoma and subsequent neurological compromise, dural puncture, headaches, spinal cord and/or nerve damage, side effects of steroid medication, and poor results regarding pain control. Patient understands and wished to proceed. Patient will return to clinic in approximate 2 weeks for follow-up, was counseled as to return appointment, activity level, and side effect to be aware of. Medication Injected: Med Injected: Procedure cervical epidural steroid injection at the C6-7 level, using local anesthetic under sterile prep and drape using C-arm fluoroscopic guidance under local anesthesia medications injected ; 20 mg dexamethasone +5 mL normal saline and 2 mL contrast; condition at discharge is stable patient tolerated procedure well. and had no complications Condition at Discharge: Condition at Discharge: Condition at discharge is stable, patient tolerated procedure well and had no complications. ALEX MUNOZ MD Jul 13, 2021 08:37
--- NOTE | 2021-07-13 08:37 | PDOC4 ---
Procedure Note: ICD 10 Code: ICD 10 Code: M54.12 M50.30 M4 8.02 Procedure Note: Patient was consented for cervical epidural steroid injection with fluoroscopic guidance. Risks were discussed including but not limited to: Bleeding, infection, possibility of epidural hematoma and subsequent neurological compromise, dural puncture, headaches, spinal cord and/or nerve damage, side effects of steroid medication, and poor results regarding pain control. Patient understands and wished to proceed. Procedure cervical epidural steroid injection at the C6-7 level, using local anesthetic under sterile prep and drape using C-arm fluoroscopic guidance under local anesthesia medications injected ; 20 mg dexamethasone +5 mL normal saline and 2 mL contrast; condition at discharge is stable patient tolerated procedure well. and had no complications ALEX MUNOZ MD Jul 13, 2021 08:37
== END | disposition home or self-care (01) ==
LOC: PNCL 07:50
PROVIDERS: ATTEND Anesthesiology
DX: M50.10 Cervical disc disorder with radiculopathy, unspecified cervical region (principal); M48.02 Spinal stenosis, cervical region; M54.12 Radiculopathy, cervical region; I10 Essential (primary) hypertension; K21.9 Gastro-esophageal reflux disease without esophagitis; M19.90 Unspecified osteoarthritis, unspecified site; F41.9 Anxiety disorder, unspecified; F32.9 Major depressive disorder, single episode, unspecified
CPT/HCPCS: 62321; J1100; Q9965

== ENCOUNTER → 2021-08-01 | Outpatient (CLI) | payer MEDICARE ==
[2021-01-27 12:05] VITALS: BP 150/90
[~2021-08-01] MED LIST changes: -DEXAMETHASONE PRES.FREE 10 MG/ML VIAL. ONE; -IOHEXOL 180 MG/ML 10 ML VIAL. ONE
[2021-08-01 15:11] LABS: BASO # 0.1 x10^3/uL (0.0-0.2); BASO % 1 % (0-3); EOS # 0.1 x10^3/uL (0.0-0.7); EOS % 2 % (0-3); HEMATOCRIT 42.4 % (39.0-53.0); HEMOGLOBIN 14.3 g/dL (13.0-17.5); LYMPH # 0.6 x10^3/uL (1.0-4.8); LYMPH % 15 % (24-48); MEAN CORPUSCULAR HEMOGLOBIN 29 pg (25-35); MEAN CORPUSCULAR HGB CONC 34 g/dL (31-37); MEAN CORPUSCULAR VOLUME 86 fL (79-100); MONO # 0.4 x10^3/uL (0.0-1.1); MONO % 9 % (0-9); NEUT # 3.1 x10^3/uL (1.8-7.7); NEUT % 74 % (31-73); PLATELET COUNT 259 x10^3/uL (140-400); RED BLOOD COUNT 4.93 x10^6/uL (4.30-5.70); RED CELL DISTRIBUTION WIDTH 17.4 % (11.5-14.5); WHITE BLOOD COUNT 4.2 x10^3/uL (4.0-11.0)
--- NOTE | 2021-08-01 15:24 | EKG ---
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
[2021-08-01 15:48] LABS: ALBUMIN 3.5 g/dL (3.4-5.0); ALBUMIN/GLOBULIN RATIO 1.1 (1.0-1.7); CALCIUM 8.6 mg/dL (8.5-10.1); CREATININE 1.4 mg/dL (0.7-1.3); GFR 50.1; POTASSIUM 4.1 mmol/L (3.5-5.1); TOTAL BILIRUBIN 0.4 mg/dL (0.2-1.0); TOTAL PROTEIN 6.8 g/dL (6.4-8.2)
== END ==
LOC: SURGPAT 14:48
PROVIDERS: ATTEND Neurological Surgery
DX: Z01.818 Encounter for other preprocedural examination (principal); M47.22 Other spondylosis with radiculopathy, cervical region; M54.2 Cervicalgia
CPT/HCPCS: 36415; 80053; 85025; 87641; 93005